=== PATIENT | female | born 1970 | race Caucasian/White ===

== ENCOUNTER 2017-03-31 13:37 | Emergency (ER) | payer BC ==
[~2017-03-31 13:37] MED LIST: ALPR0.5T6 PO; ASPI-630 PO; CRESTOR20 MG PO; DICL75TA PO; DIVA500T2 PO; DOCU100T11 PO; DOXY25TA16 PO; DULO30CA2 PO; DULO60CA6 PO; ETOD500T PO; GABA-586 PO; GLIP10TA13 PO; LEVO100T5 PO; LEVO75TA5 PO; MAGN400O7 PO; METF500T4 PO; METF500T9 PO; MULT1TAB52 PO; OMEP40CA5 PO; ONDA4TAB7 PO; OXYC10TA PO; PANT40TA3 PO; POLY17PO5 PO; POTA20TA12 PO; PREG150C PO; PROP10TA PO; QUET300T6 PO; QUET400T6 PO; SIMV10TA PO; SUCR1TAB PO; SUMA100T3 PO; SUMA100T4 PO; TAMS0.4C2 PO; TRAM50TA PO; TRAZ50TA15 PO; TRIA1CAP3 PO; TRIA1TAB3 PO; VILA40TA PO; ZOLP10TA4 PO; ZOLP5TAB PO
[2017-03-31 13:45] VITALS: BP 117/81
--- NOTE | 2017-03-31 14:55 | RAD ---
Indication fall 2 weeks ago. Persistent pain. AP oblique and lateral views of the left foot were obtained. No bony abnormality is seen
--- NOTE | 2017-03-31 15:10 | PHYS DOC ---
Past History Past Medical History: Arthritis, Bipolar, Depression, Diabetes, Fibromyalgia, High Cholesterol, Hypertension, Other Additional Past Medical Histor: PTSD Past Surgical History: Hysterectomy, Tubal ligation, Other Smoking: Non-smoker Alcohol Use: Sober Drug Use: None Adult General Chief Complaint Chief Complaint: FOOT INJURY PAIN HPI HPI Patient is a 46 year old female who presents with foot pain. The patient states she twisted her left foot while walking yesterday. She has pain with weightbearing. She saw a control panel operator 3 weeks ago and was diagnosed by MRI with a fracture of her lateral metatarsals. She was wearing a postop shoe at the time of the injury that brings her to the emergency department today. She did not take any additional medication for this injury. She states she can't take Tylenol or ibuprofen and ran out of tramadol. Review of Systems Review of Systems Constitutional: Denies fever or chills HENT: Denies nasal congestion or sore throat Respiratory: Denies cough or shortness of breath Cardiovascular: Denies chest pain GI: Denies abdominal pain Musculoskeletal: Reports foot pain Integument: Denies rash Neurologic: Denies headache Allergies Allergies Allergies Coded Allergies Type Severity Reaction Last Updated Verified Penicillins Allergy Intermediate 11/15/14 Yes aripiprazole Allergy Intermediate 11/15/14 Yes ciprofloxacin Allergy Intermediate 11/15/14 Yes Physical Exam Physical Exam Constitutional: Well developed, well nourished, no acute distress, non-toxic appearance. HENT: Normocephalic, atraumatic, bilateral external ears normal, oropharynx moist, nose normal. Eyes: conjunctiva normal, no discharge. Cardiovascular: no edema. Lungs & Thorax: no respiratory distress. Abdomen: nondistended. Skin: Warm, dry, no erythema, no rash. Extremities: Left foot no swelling or deformity, generalized tenderness over the dorsum of the foot overlying the first metatarsal. Otherwise no bony foot or ankle tenderness. Intact range of motion at the ankle, able to move toes. DP and PT 2+, capillary refill less than 2 seconds, sensation intact to toes. Neurologic: Alert and oriented X 3 Current Patient Data Vital Signs Vital Signs Date Time Temp Pulse Resp B/P (MAP) Pulse Ox O2 Delivery O2 Flow Rate FiO2 03/31/17 13:45 96.8 90 16 95 Room Air EKG EKG [] Radiology/Procedures Radiology/Procedures PROCEDURE: FOOT LEFT 3V Indication fall 2 weeks ago. Persistent pain. AP oblique and lateral views of the left foot were obtained. No bony abnormality is seen DICTATED AND SIGNED BY: ROGELIO JAIN MD DATE: 03/31/17 1449[] Course & Med Decision Making Course & Med Decision Making Pertinent Labs and Imaging studies reviewed. (See chart for details) The patient presents with foot pain. No evidence of fracture on x-ray here. Encouraged supportive care with rest, ice, compression, elevation. She requested pain medication. At this time no indication for need for ongoing prescription pain medication. Recommended that she follow up with her treating Dr. for additional concerns. Return to the emergency department for neurovascular compromise or otherwise worsening condition. Discharged home today in stable condition. [] Dragon Disclaimer Dragon Disclaimer This chart was dictated in whole or in part using Voice Recognition software in a busy, high-work load, and often noisy Emergency Department environment. It may contain unintended and wholly unrecognized errors or omissions. Departure Departure: Impression: Primary Impression: Foot pain Disposition: HOME, SELF-CARE Condition: STABLE Referrals: YVETTE MCELROY MD (PCP) Patient Instructions: Foot Contusion Additional Instructions: You were seen in the emergency department today for foot pain. The x-ray did not show broken bone. Please continue to wear the hard shoe provided by your doctor. Rest, ice, elevate, wear the Doroteo wrap bandage. Follow-up with your doctor on Monday if not improving. JONG DORADO MD Mar 31, 2017 15:10
== END 2017-03-31 15:30 | disposition home or self-care (01) ==
LOC: ER 13:37
DX: M79.672 Pain in left foot (principal); E11.9 Type 2 diabetes mellitus without complications; E78.00 Pure hypercholesterolemia, unspecified; I10 Essential (primary) hypertension; F43.10 Post-traumatic stress disorder, unspecified; M79.7 Fibromyalgia; M19.90 Unspecified osteoarthritis, unspecified site; F31.9 Bipolar disorder, unspecified; Z88.0 Allergy status to penicillin; Z88.1 Allergy status to other antibiotic agents; Z88.8 Allergy status to other drugs, medicaments and biological substances; X58.XXXA Exposure to other specified factors, initial encounter; Y93.01 Activity, walking, marching and hiking; Y99.8 Other external cause status; Y92.89 Other specified places as the place of occurrence of the external cause
CPT/HCPCS: 73630; 99284

== ENCOUNTER 2017-05-29 15:10 | Emergency (ER) | payer BC ==
[~2017-05-29] VITALS: Ht 167.6 cm; Wt 83.9 kg
[2017-05-29] MEDS ORDERED: LIDOCAINE WITH 8.4% SOD BICARB 3 ML DISP.SYRIN. IJ ONE (15:45)
[2017-05-29] MEDS ORDERED: DIPHTH,PERTUSS(ACELL),TET TOX 0.5 ML DISP.SYRIN. VAX IM ONE (16:00)
[2017-05-29 16:05] VITALS: BP 116/75
--- NOTE | 2017-05-29 16:12 | PHYS DOC ---
Past History Past Medical History: Arthritis, Bipolar, Depression, Diabetes, Fibromyalgia, High Cholesterol, Hypertension, Other Additional Past Medical Histor: PTSD Past Surgical History: Hysterectomy, Tubal ligation, Other Smoking: Non-smoker Alcohol Use: Sober Drug Use: None Adult General Chief Complaint Chief Complaint: LACERATION HPI HPI Patient is a 46-year-old female brought to the ED by her daughter with a laceration to her left hand. The patient is right-handed. The patient has a history of self inflicted injury. She stabbed her hand today with scissors. She denies suicidal ideation, she does this as a coping mechanism, not to try to injure herself. Patient has a history of self injury. She does see a therapist and is in group. She does take medications and has been taking them as prescribed. About 2 or 3 weeks ago the patient burned herself on the right ankle with a match. That is healing well. Review of Systems Review of Systems Integument: Healing right ankle burn as in history of present illness Neurologic: Denies headache, states she has short and long-term memory loss, unchanged Current Medications Current Medications Current Medications Medications (Trade) Dose Ordered Sig/David Start Time Stop Time Status Last Admin Dose Admin Bacitracin 1 pkt DAILY 05/30/17 09:00 UNV Diphtheria/ Tetanus/Acell Pertussis (Boostrix) 0.5 ml ONCE ONCE 05/29/17 16:00 05/29/17 16:01 DC 05/29/17 15:57 0.5 ML Lidocaine/Sodium Bicarbonate (Buffered Lidocaine 1%) 3 ml 1X ONCE 05/29/17 15:45 05/29/17 15:47 DC 05/29/17 15:45 3 ML Allergies Allergies Allergies Coded Allergies Type Severity Reaction Last Updated Verified Penicillins Allergy Intermediate 11/15/14 Yes aripiprazole Allergy Intermediate 11/15/14 Yes ciprofloxacin Allergy Intermediate 11/15/14 Yes Physical Exam Physical Exam Constitutional: Well developed, well nourished, no acute distress, non-toxic appearance. Alert, pleasant, mentating normally. Does not appear intoxicated. HENT: Normocephalic, atraumatic, bilateral external ears normal, nose normal. [] Eyes: conjunctiva normal, no discharge. [] Neck: Normal range of motion, no stridor. [] Skin: Warm, dry, no erythema, no rash. [] Extremities: Right ankle on the medial aspect has a healing area of second- degree burn that's approximately 2 x 2 centimeters, does not appear infected, is mostly healed. Left hand: There is a 1.5 cm laceration on the web space between the thumb and index finger. It appears consistent with a history. It is well into the subcutaneous tissue. Patient has good strength with approximation of the thumb and index finger. Neurologic: Alert and oriented X 3, normal motor function, normal sensory function, no focal deficits noted. [] Psychologic: Affect normal, judgement normal, mood normal. No agitation, does not appear depressed, cooperative. EKG EKG [] Radiology/Procedures Radiology/Procedures Procedure: Repair of left hand laceration 1.5 cm by me Neurovascular intact, no evidence on clinical exam of injury to deeper structures. The laceration was anesthetized with buffered lidocaine. It was irrigated with wound irrigation spray. The laceration was sutured with 3 simple interrupted sutures of 4-0 nylon. Good result. Bandaged by ED nursing staff. [] Course & Med Decision Making Course & Med Decision Making Pertinent Labs and Imaging studies reviewed. (See chart for details) 46-year-old female with a history of self injury but not suicidal ideation, comes with a self-inflicted laceration to the left hand. I talked to the patient at length while suturing her laceration. She regrets injuring her hand and is not suicidal, she does not believe she will be at risk for self injury if released. She states this usually happens when she is alone, and her daughter and will be with her. We discussed strategies to cope other than self injury. We discussed that she enjoys coloring and also taking walks, she will try doing one of those things. She does have group therapy tomorrow and she will discuss this. I ask her to call her therapist to report that this happened and make a plan. I'd like to have the sutures removed in about 12 days but the patient is leaving in one week to go out of town for one week to her daughter's wedding and she can wait until she returns to town to have them taken out. [] Dragon Disclaimer Dragon Disclaimer This chart was dictated in whole or in part using Voice Recognition software in a busy, high-work load, and often noisy Emergency Department environment. It may contain unintended and wholly unrecognized errors or omissions. Departure Departure: Impression: Primary Impression: Laceration of left hand Additional Impression: Self-inflicted injury Disposition: HOME, SELF-CARE Condition: IMPROVED Referrals: YVETTE MCELROY MD (PCP) Additional Instructions: Leave the bandage on and keep it dry for 48 hours. Then, you may remove the bandage and get it wet briefly to shower. Pat dry, make sure it is good and dry , and apply antibiotic ointment. Repeat bandage with Band-Aid or a gauze wrap like we did here. I would like the stitches to stay in for at least 12 days because of the location. Since you will be out of town, you may have stitches removed when you return on June 14. Make an appointment now with your doctor to have stitches removed as soon as possible after 12 days. As we discussed, discuss this with your therapist and make sure that they are aware of what happened. Problem Qualifiers MERI HOBBS MD May 29, 2017 16:12
[2017-05-29] MEDS ORDERED: BACITRACIN ZINC TOPICAL OINT PACKET. TP ONE (16:30)
== END 2017-05-29 16:20 | disposition home or self-care (01) ==
LOC: ER 15:10
DX: S61.411A Laceration without foreign body of right hand, initial encounter (principal); M79.7 Fibromyalgia; E11.9 Type 2 diabetes mellitus without complications; E78.00 Pure hypercholesterolemia, unspecified; I10 Essential (primary) hypertension; M19.90 Unspecified osteoarthritis, unspecified site; F31.9 Bipolar disorder, unspecified; Z88.0 Allergy status to penicillin; Z88.1 Allergy status to other antibiotic agents; Z88.8 Allergy status to other drugs, medicaments and biological substances; X78.8XXA Intentional self-harm by other sharp object, initial encounter; Y93.89 Activity, other specified; Y99.8 Other external cause status; Y92.89 Other specified places as the place of occurrence of the external cause
CPT/HCPCS: 12001; 90471; 90715; 99283-25

== ENCOUNTER 2017-12-13 13:07 | Emergency (ER) | payer BC ==
[~2017-12-13] VITALS: Ht 165.1 cm; Wt 94.0 kg
[2017-12-13 14:05] LABS: BASO # 0.1 x10^3/uL (0.0-0.2); BASO % 1 % (0-3); EOS # 0.2 x10^3/uL (0.0-0.7); EOS % 1 % (0-3); HEMATOCRIT 43.3 % (36.0-47.0); HEMOGLOBIN 14.4 g/dL (12.0-15.5); LYMPH # 2.8 x10^3/uL (1.0-4.8); LYMPH % 25 % (24-48); MEAN CORPUSCULAR HEMOGLOBIN 30 pg (25-35); MEAN CORPUSCULAR HGB CONC 33 g/dL (31-37); MEAN CORPUSCULAR VOLUME 90 fL (79-100); MONO # 0.7 x10^3/uL (0.0-1.1); MONO % 7 % (0-9); NEUT # 7.5 x10^3uL (1.8-7.7); NEUT % 67 % (31-73); PLATELET COUNT 258 x10^3/uL (140-400); RED BLOOD COUNT 4.84 x10^6/uL (3.50-5.40); RED CELL DISTRIBUTION WIDTH 14.3 % (11.5-14.5); WHITE BLOOD COUNT 11.3 x10^3/uL (4.0-11.0)
[2017-12-13 14:20] LABS: ALBUMIN 3.7 g/dL (3.4-5.0); ALBUMIN/GLOBULIN RATIO 1.1 (1.0-1.7); CALCIUM 9.2 mg/dL (8.5-10.1); CREATININE 0.9 mg/dL (0.6-1.0); GFR 66.5; POTASSIUM 3.1 mmol/L (3.5-5.1); TOTAL BILIRUBIN 0.3 mg/dL (0.2-1.0); TOTAL PROTEIN 7.2 g/dL (6.4-8.2)
--- NOTE | 2017-12-13 15:01 | PHYS DOC ---
Past History Past Medical History: Arthritis, Bipolar, Depression, Diabetes, Fibromyalgia, High Cholesterol, Hypertension, Hypothyroid, Other Additional Past Medical Histor: PTSD Past Surgical History: Hysterectomy, Tubal ligation, Other Smoking: Non-smoker Alcohol Use: Sober Additional Alcohol Information: X 1 YEAR Drug Use: None Adult General Chief Complaint Chief Complaint: ALTERED MENTAL STATUS HPI HPI Patient is a 47-year-old female brought from the [facility] by EMS with the complaint of altered mental status. EMS reported that the patient was called in as "unresponsive" but when they arrived, the patient stood up out of the chair and walked to the ambulance cart unassisted. She was nonverbal however. The [facility] told them that she is usually talkative. She came in today and was not acting right" became unresponsive" but she was sitting up in a chair the entire time. EMS reported that the patient's pupils are dilated. On arrival, patient did answer a couple of questions although not appropriately. For example, she was asked her date of and she stated "June"... Then was asked "what day?" And responded "fifth"... Then had to be prompted again to answer what year. On arrival, the patient very slowly told me "I just feel like it's all an illusion." Review of Systems Review of Systems Patient is altered, not answering questions appropriately, and not able to respond to review of systems accurately. Allergies Allergies Allergies Coded Allergies Type Severity Reaction Last Updated Verified Penicillins Allergy Intermediate 11/15/14 Yes aripiprazole Allergy Intermediate 11/15/14 Yes ciprofloxacin Allergy Intermediate 11/15/14 Yes Physical Exam Physical Exam Constitutional: Well developed, well nourished, no acute distress, non-toxic appearance. Eyes are open. Moving all extremities but not really following commands well. HENT: Normocephalic, atraumatic, bilateral external ears normal, oropharynx very dry, nose normal. [] Eyes: PERRLA, conjunctiva normal, no discharge. [] Neck: Normal range of motion, no stridor. [] Cardiovascular:Heart rate regular rhythm, no murmur [] Lungs & Thorax: Bilateral breath sounds clear to auscultation [] Abdomen: Bowel sounds normal, soft, no tenderness, no masses, no pulsatile masses. [] Skin: Warm, dry, no erythema, no rash. [] Extremities: No tenderness, no cyanosis, no clubbing, ROM intact, no edema. [] Neurologic: Alert, as described, normal motor function, no focal deficits noted. [] Current Patient Data Vital Signs Vital Signs Date Time Temp Pulse Resp B/P (MAP) Pulse Ox O2 Delivery O2 Flow Rate FiO2 12/13/17 14:18 94 18 111/77 (88) 94 Room Air 12/13/17 13:10 98.8 Lab Results Laboratory Tests Test 12/13/17 13:54 White Blood Count 11.3 x10^3/uL (4.0-11.0) H Red Blood Count 4.84 x10^6/uL (3.50-5.40) Hemoglobin 14.4 g/dL (12.0-15.5) Hematocrit 43.3 % (36.0-47.0) Mean Corpuscular Volume 90 fL (79-100) Mean Corpuscular Hemoglobin 30 pg (25-35) Mean Corpuscular Hemoglobin Concent 33 g/dL (31-37) Red Cell Distribution Width 14.3 % (11.5-14.5) Platelet Count 258 x10^3/uL (140-400) Neutrophils (%) (Auto) 67 % (31-73) Lymphocytes (%) (Auto) 25 % (24-48) Monocytes (%) (Auto) 7 % (0-9) Eosinophils (%) (Auto) 1 % (0-3) Basophils (%) (Auto) 1 % (0-3) Neutrophils # (Auto) 7.5 x10^3uL (1.8-7.7) Lymphocytes # (Auto) 2.8 x10^3/uL (1.0-4.8) Monocytes # (Auto) 0.7 x10^3/uL (0.0-1.1) Eosinophils # (Auto) 0.2 x10^3/uL (0.0-0.7) Basophils # (Auto) 0.1 x10^3/uL (0.0-0.2) Sodium Level 140 mmol/L (136-145) Potassium Level 3.1 mmol/L (3.5-5.1) L Chloride Level 101 mmol/L (98-107) Carbon Dioxide Level 27 mmol/L (21-32) Anion Gap 12 (6-14) Blood Urea Nitrogen 9 mg/dL (7-20) Creatinine 0.9 mg/dL (0.6-1.0) Estimated GFR (Cockcroft-Gault) 66.5 BUN/Creatinine Ratio 10 (6-20) Glucose Level 105 mg/dL (70-99) H Calcium Level 9.2 mg/dL (8.5-10.1) Total Bilirubin 0.3 mg/dL (0.2-1.0) Aspartate Amino Transferase (AST) 14 U/L (15-37) L Alanine Aminotransferase (ALT) 24 U/L (14-59) Alkaline Phosphatase 64 U/L (46-116) Total Protein 7.2 g/dL (6.4-8.2) Albumin 3.7 g/dL (3.4-5.0) Albumin/Globulin Ratio 1.1 (1.0-1.7) EKG EKG [] Radiology/Procedures Radiology/Procedures [] Course & Med Decision Making Course & Med Decision Making Pertinent Labs and Imaging studies reviewed. (See chart for details) EMS brought with the patient a medication list dated December 2016. A new medication was written in, Buprenorphine 7.5 mg patch 1 time a week dated . Other meds include Lyrica, bupropion, duloxetine, Seroquel, trazodone, in addition to several others. Patient later told me that she had previously been on hydrocodone for pain, then had been on tramadol, but it was not able to be combined with another one of her medications, so recently she was changed to the Butrans-patch. Patient rested comfortably in the ED. There is some difficulty getting her blood for labs but she tolerated that well. She became more talkative while phlebotomy was working on her lab draws. When I revisited her, the patient was very talkative. She asked me "do you think this could be from stress?". She states she feels like she is just overwhelmed. She also stated "I just feel like there is an illusion in front of me" stated that she is just not feeling right. She did drive to the [facility] today and I cautioned her that she should definitely not be driving when she's not feeling right. ED nursing staff was able to reach the patient's who will come in to pick her up. I believe the patient is stable for discharge as long as she is not driving and has someone watching her. The patient is comfortable with that plan. [] Dragon Disclaimer Dragon Disclaimer This electronic medical record was generated, in whole or in part, using a voice recognition dictation system. Departure Departure: Impression: Primary Impression: Altered mental status Additional Impression: Medication side effect Disposition: HOME, SELF-CARE Condition: IMPROVED Referrals: YVETTE MCELROY MD (PCP) Additional Instructions: As we discussed, I recommend that you do not drive, and stay with someone who can watch you, as long as you are having side effects of medication causing you to not feel right. Call your doctor or doctors you are prescribing medications for you and make an appointment to discuss the side effects you are experiencing. You may need to have some medications changed or doses changed. If medications are prescribed "as needed" you may withhold those medications for now to see if that helps. If medications are prescribed on a regular basis you should not stop them until talking to the prescribing doctor. Do not combine any other medications, any alcohol, or other substances with the medications that have been prescribed for you. Problem Qualifiers MERI HOBBS MD Dec 13, 2017 15:01
[2017-12-13 15:30] VITALS: BP 106/76
== END 2017-12-13 15:30 | disposition home or self-care (01) ==
LOC: ER 13:07
DX: R41.82 Altered mental status, unspecified (principal); T50.905A Adverse effect of unspecified drugs, medicaments and biological substances, initial encounter; M79.7 Fibromyalgia; E78.00 Pure hypercholesterolemia, unspecified; E03.9 Hypothyroidism, unspecified; E11.9 Type 2 diabetes mellitus without complications; F43.10 Post-traumatic stress disorder, unspecified; M19.90 Unspecified osteoarthritis, unspecified site; F31.9 Bipolar disorder, unspecified; I10 Essential (primary) hypertension; Z87.891 Personal history of nicotine dependence; Z88.0 Allergy status to penicillin; Z88.1 Allergy status to other antibiotic agents; Z88.8 Allergy status to other drugs, medicaments and biological substances; Y92.89 Other specified places as the place of occurrence of the external cause
CPT/HCPCS: 36415; 80053; 85025; 99284

== ENCOUNTER 2018-08-16 09:51 | Inpatient (IN) | payer BC, MEDICARE ==
[~2018-08-16] VITALS: Ht 167.6 cm; Wt 90.7 kg
[~2018-08-16 09:51] MED LIST changes: +METF500T16 PO; -METF500T4 PO; +TRAZ-85 PO; -TRAZ50TA15 PO
[2018-08-16] MEDS ORDERED: IV NORMAL SALINE 1,000ML 1,000 ML IV ONE (10:30)
--- NOTE | 2018-08-16 10:31 | PHYS DOC ---
Past History Past Medical History: Arthritis, Bipolar, Depression, Diabetes, Fibromyalgia, High Cholesterol, Hypertension, Hypothyroid, Other Additional Past Medical Histor: PTSD Past Surgical History: Hysterectomy, Tubal ligation, Other Smoking: Non-smoker Alcohol Use: None Drug Use: None Adult General Chief Complaint Chief Complaint: ALTERED MENTAL STATUS HPI HPI 48-year-old female presents with altered mental status. The patient is on several medications. Her went out of town for a few days. Prior to this , the patient was feeling and acting normal. When he got back he discovered that she missed at least one full day of her medications. He has made sure she has gotten her medications the last 4 days. Today he left the house and came back and during that time she usually takes her medicines. She did not take any of her medicines to he reminded her to. He also states that her speech seems a little slurred and she answers questions more slowly. She has had intermittent difficulty with memory in the past, but he feels like it is more consistent the last few days. The patient also was off balance and fell yesterday. It is unknown whether or not she hit her head. She denies losing consciousness. Patient has balance issues at baseline. She has had a similar episode to this in the past and she had hypercalcemia and hypokalemia. She has not had fever or chills at home. Review of Systems Review of Systems Constitutional: Denies fever or chills [] Eyes: Denies change in visual acuity, redness, or eye pain [] HENT: Denies nasal congestion or sore throat [] Respiratory: Denies cough or shortness of breath [] Cardiovascular: No additional information not addressed in HPI [] GI: Denies abdominal pain, nausea, vomiting, bloody stools or diarrhea [] : Increased urinary frequency[] Musculoskeletal: Denies back pain or joint pain [] Integument: Denies rash or skin lesions [] Neurologic: More frequent dizziness than baseline[] Endocrine: Denies polyuria or polydipsia [] All other systems were reviewed and found to be within normal limits, except as documented in this note. Current Medications Current Medications Current Medications Medications (Trade) Dose Ordered Sig/David Start Time Stop Time Status Last Admin Dose Admin Sodium Chloride 1,000 ml @ 1,000 mls/hr 1X ONCE 08/16/18 10:30 08/16/18 11:29 UNV Allergies Allergies Allergies Coded Allergies Type Severity Reaction Last Updated Verified Penicillins Allergy Intermediate 11/15/14 Yes aripiprazole Allergy Intermediate 11/15/14 Yes ciprofloxacin Allergy Intermediate 11/15/14 Yes Physical Exam Physical Exam Constitutional: Well developed, well nourished, no acute distress, non-toxic appearance. [] HENT: Normocephalic, atraumatic, bilateral external ears normal, oropharynx very dry, no oral exudates, nose normal. [] Eyes: PERRLA, EOMI, conjunctiva normal, no discharge. [] Neck: Normal range of motion, no tenderness, supple, no stridor. [] Cardiovascular:Heart rate regular rhythm, no murmur [] Lungs & Thorax: Bilateral breath sounds clear to auscultation [] Abdomen: Bowel sounds normal, soft, no tenderness, no masses, no pulsatile masses. [] Skin: Warm, dry, no erythema, no rash. [] Back: No tenderness, no CVA tenderness. [] Extremities: No tenderness, no cyanosis, no clubbing, ROM intact, no edema. [] Neurologic: Alert and oriented X 3, normal motor function, normal sensory function, no focal deficits noted. Slow to answer some questions, but appropriate answers.[] Psychologic: Affect normal, judgement normal, mood normal. [] Current Patient Data Vital Signs Vital Signs Date Time Temp Pulse Resp B/P (MAP) Pulse Ox O2 Delivery O2 Flow Rate FiO2 08/16/18 10:13 98.0 100 18 98 Room Air EKG EKG [] Radiology/Procedures Radiology/Procedures [] Impressions: CT HEAD WO CONTRAST dated 08/16/2018 10:28 AM Indication: Altered mental status.AMS. Comparison: No comparison is available. Technique: Contiguous axial imaging the head was performed from skull base to vertex. One or more of the following individualized dose reduction techniques were utilized for this examination: 1. Automated exposure control 2. Adjustment of the mA and/or kV according to patient size 3. Use of iterative reconstruction technique Findings: Ventricles and sulci are mildly prominent for age. No midline shift or mass effect. Brain parenchyma is of normal attenuation. No hemorrhage or extra axial collection. Posterior fossa and brainstem unremarkable. Visualized paranasal sinuses and mastoid air cells are clear. No apparent calvarial abnormality. IMPRESSION: No evidence of acute intracranial abnormality. Electronically signed by: Garcia Cowart MD (08/16/2018 10:52 AM) [facility] DICTATED AND SIGNED BY: GARCIA COWART MD DATE: 08/16/18 1051 CC: ELISABETH MENJIVAR DO; YVETTE MCELROY MD CHEST AP ONLY dated 08/16/2018 9:50 AM. Comparison: None. Clinical Indication: Altered mental status. Findings: Single upright portable exam performed. Heart and mediastinal contours are within normal limits. Lungs are clear without focal consolidation. Vascular interstitium within normal limits. No pleural effusion or pneumothorax. Impression: Negative portable chest. Electronically signed by: Garcia Cowart MD (08/16/2018 10:50 AM) [facility] DICTATED AND SIGNED BY: GARCIA COWART MD DATE: 08/16/18 1049 CC: ELISABETH MENJIVAR DO; YVETTE MCELROY MD~ Course & Med Decision Making Course & Med Decision Making Pertinent Labs and Imaging studies reviewed. (See chart for details) The patient has a potassium of 2.7. We will replace this orally and IV. Her creatinine is 1.8. Her previous from December of this year was normal. I ordered a liter of normal saline as well as an additional liter with potassium. The patient has urinary tract infection. Blood cultures have been ordered. We'll treat this with IV Rocephin. The patient will be admitted to the hospital. Her head CT is negative for acute findings. Chest x-rays negative. I discussed the case with the hospitalist, Dr. Antunez and he has accepted the patient for admission. [] Dragon Disclaimer Dragon Disclaimer This electronic medical record was generated, in whole or in part, using a voice recognition dictation system. Departure Departure: Referrals: YVETTE MCELROY MD (PCP) ELISABETH MENJIVAR DO Aug 16, 2018 10:31
[2018-08-16 10:33] LABS: BASO # 0.2 x10^3/uL (0.0-0.2); BASO % 1 % (0-3); EOS # 0.2 x10^3/uL (0.0-0.7); EOS % 1 % (0-3); HEMATOCRIT 34.9 % (36.0-47.0); HEMOGLOBIN 11.8 g/dL (12.0-15.5); LYMPH # 1.7 x10^3/uL (1.0-4.8); LYMPH % 8 % (24-48); MEAN CORPUSCULAR HEMOGLOBIN 28 pg (25-35); MEAN CORPUSCULAR HGB CONC 34 g/dL (31-37); MEAN CORPUSCULAR VOLUME 84 fL (79-100); MONO # 1.3 x10^3/uL (0.0-1.1); MONO % 6 % (0-9); NEUT # 18.8 x10^3uL (1.8-7.7); NEUT % 85 % (31-73); PLATELET COUNT 378 x10^3/uL (140-400); RED BLOOD COUNT 4.17 x10^6/uL (3.50-5.40); RED CELL DISTRIBUTION WIDTH 15.7 % (11.5-14.5); WHITE BLOOD COUNT 22.1 x10^3/uL (4.0-11.0)
[2018-08-16 10:37] LABS: BILIRUBIN,URINE NEG (NEG); CLARITY,URINE TURBID; COLOR,URINE AMBER; GLUCOSE,URINE NEG (NEG); NITRITE,URINE NEG (NEG); UROBILINOGEN,URINE 2 mg/dL (0.2 mg/dL)
[2018-08-16 10:39] LABS: BACTERIA,URINE MANY /HPF (0-FEW); GRANULAR CASTS,URINE MOD /HPF; SQUAMOUS EPITHELIAL CELL,UR MANY /LPF; WBC,URINE >40 /HPF (0-4)
[2018-08-16 10:48] LABS: ALBUMIN 2.1 g/dL (3.4-5.0); ALBUMIN/GLOBULIN RATIO 0.4 (1.0-1.7); CALCIUM 8.8 mg/dL (8.5-10.1); CREATININE 1.8 mg/dL (0.6-1.0); GFR 29.8; TOTAL BILIRUBIN 1.2 mg/dL (0.2-1.0); TOTAL PROTEIN 7.2 g/dL (6.4-8.2)
[2018-08-16 10:50] LABS: POTASSIUM 2.7 mmol/L (3.5-5.1)
--- NOTE | 2018-08-16 10:53 | RAD ---
CHEST AP ONLY dated 08/16/2018 9:50 AM. Comparison: None. Clinical Indication: Altered mental status. Findings: Single upright portable exam performed. Heart and mediastinal contours are within normal limits. Lungs are clear without focal consolidation. Vascular interstitium within normal limits. No pleural effusion or pneumothorax. Impression: Negative portable chest. Electronically signed by: Garcia Cowart MD (08/16/2018 10:50 AM) [facility]
--- NOTE | 2018-08-16 10:55 | RAD ---
CT HEAD WO CONTRAST dated 08/16/2018 10:28 AM Indication: Altered mental status.AMS. Comparison: No comparison is available. Technique: Contiguous axial imaging the head was performed from skull base to vertex. One or more of the following individualized dose reduction techniques were utilized for this examination: 1. Automated exposure control 2. Adjustment of the mA and/or kV according to patient size 3. Use of iterative reconstruction technique Findings: Ventricles and sulci are mildly prominent for age. No midline shift or mass effect. Brain parenchyma is of normal attenuation. No hemorrhage or extra axial collection. Posterior fossa and brainstem unremarkable. Visualized paranasal sinuses and mastoid air cells are clear. No apparent calvarial abnormality. IMPRESSION: No evidence of acute intracranial abnormality. Electronically signed by: Garcia Cowart MD (08/16/2018 10:52 AM) [id number]
[2018-08-16] MEDS ORDERED: POTASSIUM CL 40MEQ IN 0.9%NACL 1,000 ML IV ONE (11:00)
[2018-08-16] MEDS ORDERED: POTASSIUM CHLORIDE 20 MEQ TABLET.ER. PO ONE (11:00)
[2018-08-16] MEDS ORDERED: cefTRIAXone SODIUM 1 GM VIAL IV ONE (11:21)
[2018-08-16] MEDS ORDERED: IV NORMAL SALINE 50ML 50 ML ONE (11:21)
[2018-08-16 11:25] LABS: % BANDS 9 % (0-9); % BASOS 0 % (0-3); % EOS 0 % (0-5); % LYMPHS 12 % (24-48); % METAS 2 % (0-0); % MONOS 4 % (0-10); % SEGS 73 % (35-66); HYPOCHROMIA PRESENT; PLATELET CLUMP PRESENT; PLT ESTIMATE ADEQUATE (ADEQUATE); STOMATOCYTES OCC
[2018-08-16 11:26] LABS: TOXIC GRANULATION MARKED; TOXIC VACUOLATION SLIGHT
[2018-08-16 13:16] VITALS: BP 114/76
--- NOTE | 2018-08-16 13:31 | EKG ---
[address] [address] Test Date: 2018-08-16 Test Time: 11:23:57 Pat Name: ASHELY SESAY Department: Room: 107 A Gender: F Laundry Laborer: : 1970 Requested By: ELISABETH MENJIVAR Order Number: [id number] Reading MD: Aman Carpio MD Measurements Intervals [place] Rate: 87 P: -10 [place]: 160 QRS: -28 QRSD: 96 T: 13 QT: 404 QTc: 487 Interpretive Statements SINUS RHYTHM LEFTWARD AXIS PROLONGED QT NO SPECIFIC ECG ABNORMALITIES Electronically Signed On 08-20-2018 11:12:45 DENTAL SALES REPRESENTATIVE by Aman Carpio MD
[2018-08-16] MEDS ORDERED: ATOR40TA PO (14:19)
[2018-08-16] MEDS ORDERED: ICOS1CAP PO (14:19)
[2018-08-16] MEDS ORDERED: LAMO150T2 PO (14:19)
[2018-08-16] MEDS ORDERED: SUMA100T3 PO (14:19)
[2018-08-16] MEDS ORDERED: DULO60CA44 PO (14:19)
[2018-08-16] MEDS ORDERED: QUET200T6 PO (14:19)
[2018-08-16] MEDS ORDERED: GABA-586 PO (14:19)
[2018-08-16] MEDS ORDERED: MECL25TA3 PO (14:19)
[2018-08-16] MEDS ORDERED: LEVO100T5 PO (14:19)
[2018-08-16] MEDS ORDERED: CELE100C PO (14:19)
[2018-08-16] MEDS ORDERED: PANT40TA5 PO (14:19)
[2018-08-16 14:44] VITALS: BP 100/66
[2018-08-16] MEDS ORDERED: ONDANSETRON ODT 4 MG TAB.RAPDIS PO PRN (15:30)
[2018-08-16] MEDS ORDERED: SUMAtriptan SUCCINATE 50 MG TABLET PO PRN (15:30)
[2018-08-16 16:03] LABS: ALBUMIN 1.7 g/dL (3.4-5.0); ALBUMIN/GLOBULIN RATIO 0.4 (1.0-1.7); CALCIUM 7.6 mg/dL (8.5-10.1); CREATININE 1.5 mg/dL (0.6-1.0); GFR 36.8; POTASSIUM 3.7 mmol/L (3.5-5.1); TOTAL BILIRUBIN 0.8 mg/dL (0.2-1.0)
[2018-08-16] MEDS: QUEtiapine 100 MG TABLET. PO SCH (16:11)
[2018-08-16] MEDS: NON FORMULARY ITEM (Icosapent Ethyl (Vascepa) 1 GM) PO SCH (16:11)
[2018-08-16] MEDS: ACETAMINOPHEN 500 MG TABLET PO PRN (16:37)
[2018-08-16] MEDS ORDERED: lamoTRIgine 150 MG TABLET. PO SCH (17:00)
[2018-08-16] MEDS ORDERED: QUETIAPINE FUMARATE PO SCH (17:00)
[2018-08-16 18:20] VITALS: BP 96/63
[2018-08-16] MEDS: IV NORMAL SALINE 1,000ML 1,000 ML IV SCH (18:54)
[2018-08-16] MEDS: GENTAMICIN PER PHARMACY MC PRN (19:40)
[2018-08-16] MEDS: NORMAL SALINE IV SCH (21:41)
[2018-08-16] MEDS: GENTAMICIN SULFATE IV SCH (21:41)
[2018-08-16] MEDS: traZODone 100 MG TABLET. PO PRN (21:42)
[2018-08-16] MEDS: LACTOBACILLUS RHAMNOSUS GG 1 CAPSULE. PO SCH (21:42)
[2018-08-16] MEDS: GABAPENTIN 300 MG CAPSULE. PO SCH (21:42)
[2018-08-16] MEDS: ATORVASTATIN CALCIUM 20 MG TABLET PO SCH (21:42)
[2018-08-16] MEDS: MECLIZINE 12.5 MG TABLET. PO SCH (21:43)
[2018-08-16] MEDS: DULoxetine HCL 60 MG CAPSULE.DR PO SCH (21:43)
[2018-08-16] MEDS: APIXABAN 2.5 MG TABLET PO SCH (21:43)
[2018-08-16] MEDS: CELECOXIB 100 MG CAPSULE PO SCH (21:44)
[2018-08-16] MEDS: lamoTRIgine 150 MG TABLET. PO SCH (21:44)
[2018-08-16 22:25] VITALS: BP 102/69
[2018-08-17] MEDS: LEVOTHYROXINE 100 MCG TABLET PO SCH (05:46)
[2018-08-17] MEDS: IV NORMAL SALINE 1,000ML 1,000 ML IV SCH ×2 (05:46→15:08)
[2018-08-17 06:02] VITALS: BP 110/72
[2018-08-17] MEDS: NON FORMULARY ITEM (Icosapent Ethyl (Vascepa) 1 GM) PO SCH ×2 (07:00→18:00)
[2018-08-17 07:58] LABS: BASO # 0.2 x10^3/uL (0.0-0.2); BASO % 1 % (0-3); EOS # 0.2 x10^3/uL (0.0-0.7); EOS % 1 % (0-3); HEMATOCRIT 35.9 % (36.0-47.0); LYMPH # 2.3 x10^3/uL (1.0-4.8); LYMPH % 10 % (24-48); MEAN CORPUSCULAR HEMOGLOBIN 29 pg (25-35); MEAN CORPUSCULAR HGB CONC 34 g/dL (31-37); MEAN CORPUSCULAR VOLUME 85 fL (79-100); MONO # 1.1 x10^3/uL (0.0-1.1); MONO % 5 % (0-9); NEUT % 83 % (31-73); PLATELET COUNT 386 x10^3/uL (140-400); RED BLOOD COUNT 4.21 x10^6/uL (3.50-5.40); RED CELL DISTRIBUTION WIDTH 16.2 % (11.5-14.5); WHITE BLOOD COUNT 21.8 x10^3/uL (4.0-11.0)
[2018-08-17] MEDS ORDERED: GENTAMICIN RANDOM LEVEL. MC ONE (08:00)
[2018-08-17 08:20] LABS: ALBUMIN 1.9 g/dL (3.4-5.0); ALBUMIN/GLOBULIN RATIO 0.4 (1.0-1.7); CALCIUM 8.2 mg/dL (8.5-10.1); CREATININE 1.3 mg/dL (0.6-1.0); GFR 43.4; POTASSIUM 3.5 mmol/L (3.5-5.1); TOTAL PROTEIN 6.6 g/dL (6.4-8.2)
[2018-08-17] MEDS: LACTOBACILLUS RHAMNOSUS GG 1 CAPSULE. PO SCH ×2 (09:05→21:05)
[2018-08-17] MEDS: TRIAMTERENE/HCTZ 37.5/25MG TABLET. PO SCH (09:06)
[2018-08-17] MEDS: APIXABAN 2.5 MG TABLET PO SCH ×2 (09:06→21:04)
[2018-08-17] MEDS: MECLIZINE 12.5 MG TABLET. PO SCH ×3 (09:06→21:05)
[2018-08-17] MEDS: GABAPENTIN 300 MG CAPSULE. PO SCH ×3 (09:06→21:05)
[2018-08-17] MEDS: CELECOXIB 100 MG CAPSULE PO SCH ×2 (09:06→21:05)
[2018-08-17] MEDS: PANTOPRAZOLE 40 MG TABLET. PO SCH (09:06)
[2018-08-17] MEDS: DULoxetine HCL 60 MG CAPSULE.DR PO SCH ×2 (09:06→21:05)
[2018-08-17] MEDS: ASPIRIN 81 MG TAB.CHEW PO SCH (11:28)
[2018-08-17 11:36] VITALS: BP 124/75
[2018-08-17] MEDS: GENTAMICIN PER PHARMACY MC PRN (13:33)
[2018-08-17 15:58] VITALS: BP 117/75
[2018-08-17] MEDS: QUEtiapine 100 MG TABLET. PO SCH (16:19)
[2018-08-17] MEDS: lamoTRIgine 150 MG TABLET. PO SCH (16:19)
[2018-08-17 19:25] VITALS: BP 128/67
[2018-08-17] MEDS: ATORVASTATIN CALCIUM 20 MG TABLET PO SCH (21:04)
[2018-08-17] MEDS: traZODone 100 MG TABLET. PO PRN (21:06)
[2018-08-18] MEDS: IV NORMAL SALINE 1,000ML 1,000 ML IV SCH ×3 (00:06→20:15)
[2018-08-18] MEDS: LEVOTHYROXINE 100 MCG TABLET PO SCH (05:00)
[2018-08-18] MEDS: NON FORMULARY ITEM (Icosapent Ethyl (Vascepa) 1 GM) PO SCH ×2 (05:07→18:00)
[2018-08-18 05:08] VITALS: BP 128/85
[2018-08-18] MEDS: LACTOBACILLUS RHAMNOSUS GG 1 CAPSULE. PO SCH ×2 (09:13→20:32)
[2018-08-18] MEDS: TRIAMTERENE/HCTZ 37.5/25MG TABLET. PO SCH (09:13)
[2018-08-18] MEDS: DULoxetine HCL 60 MG CAPSULE.DR PO SCH ×2 (09:13→20:32)
[2018-08-18] MEDS: APIXABAN 2.5 MG TABLET PO SCH ×2 (09:13→20:32)
[2018-08-18] MEDS: MECLIZINE 12.5 MG TABLET. PO SCH ×3 (09:13→20:32)
[2018-08-18] MEDS: GABAPENTIN 300 MG CAPSULE. PO SCH ×3 (09:14→20:32)
[2018-08-18] MEDS: PANTOPRAZOLE 40 MG TABLET. PO SCH (09:14)
[2018-08-18] MEDS: NORMAL SALINE IV SCH (09:16)
[2018-08-18] MEDS: GENTAMICIN SULFATE IV SCH (09:16)
[2018-08-18] MEDS: CELECOXIB 100 MG CAPSULE PO SCH ×2 (09:16→20:32)
[2018-08-18 10:49] LABS: BASO # 0.1 x10^3/uL (0.0-0.2); BASO % 0 % (0-3); EOS # 0.2 x10^3/uL (0.0-0.7); EOS % 1 % (0-3); HEMATOCRIT 34.8 % (36.0-47.0); HEMOGLOBIN 11.7 g/dL (12.0-15.5); LYMPH # 2.4 x10^3/uL (1.0-4.8); LYMPH % 11 % (24-48); MEAN CORPUSCULAR HEMOGLOBIN 29 pg (25-35); MEAN CORPUSCULAR HGB CONC 34 g/dL (31-37); MEAN CORPUSCULAR VOLUME 85 fL (79-100); MONO # 0.7 x10^3/uL (0.0-1.1); MONO % 3 % (0-9); NEUT # 18.8 x10^3uL (1.8-7.7); NEUT % 85 % (31-73); PLATELET COUNT 458 x10^3/uL (140-400); RED BLOOD COUNT 4.12 x10^6/uL (3.50-5.40); RED CELL DISTRIBUTION WIDTH 16.3 % (11.5-14.5); WHITE BLOOD COUNT 22.2 x10^3/uL (4.0-11.0)
[2018-08-18 11:48] LABS: % BANDS 6 % (0-9); % EOS 4 % (0-5); % LYMPHS 11 % (24-48); % MONOS 6 % (0-10); % SEGS 69 % (35-66); PLT ESTIMATE INCREASED (ADEQUATE); TOXIC GRANULATION PRESENT
[2018-08-18 12:00] VITALS: BP 125/80
[2018-08-18] MEDS: ASPIRIN 81 MG TAB.CHEW PO SCH (13:22)
[2018-08-18 15:00] VITALS: BP 120/76
[2018-08-18] MEDS: ACETAMINOPHEN 500 MG TABLET PO PRN ×2 (15:55→20:32)
[2018-08-18] MEDS: QUEtiapine 100 MG TABLET. PO SCH (18:58)
[2018-08-18] MEDS: lamoTRIgine 150 MG TABLET. PO SCH (18:58)
[2018-08-18 19:44] VITALS: BP 123/82
--- NOTE | 2018-08-18 20:21 | PN ---
DATE: 08/16/2018 SUBJECTIVE: The patient is a 48-year-old female in with sepsis, pyelonephritis. The patient's white count is still remaining elevated high, even though the patient herself says she is feeling much, much better. She is on combination of Rocephin and gentamicin. She has greater than 100,000 gram negatives that she should be taking care, but otherwise, the patient's vital signs look basically stable. OBJECTIVE: VITAL SIGNS: Blood pressure 120/70, respiratory rate 20, pulse 70, afebrile. GENERAL: The patient is alert and oriented. LUNGS: Clear. CARDIOVASCULAR: Stable. ABDOMEN: Soft. The patient is really not having any pain. LABORATORY DATA: White count still is elevated, still point of concern to continue on IV antibiotic therapy along with the Rocephin and the chance that is being followed by the Pharmacy Department. IMPRESSION: Sepsis, pyelonephritis, gram-negative organism. PLAN: As above. Continue with IV antibiotic therapy for now. Continue to monitor carefully BUN, creatinine, and white count. YVETTE MCELROY MD DR: PETER/fatou JOB#: [id number] / [id number]
[2018-08-18] MEDS: ATORVASTATIN CALCIUM 20 MG TABLET PO SCH (20:31)
[2018-08-18] MEDS: traZODone 100 MG TABLET. PO PRN (20:32)
[2018-08-18 23:08] VITALS: BP 112/73
[2018-08-19 03:51] VITALS: BP 136/87
[2018-08-19] MEDS: LEVOTHYROXINE 100 MCG TABLET PO SCH (06:08)
[2018-08-19 06:13] VITALS: BP 149/90
[2018-08-19] MEDS: NON FORMULARY ITEM (Icosapent Ethyl (Vascepa) 1 GM) PO SCH ×2 (07:00→18:00)
[2018-08-19 07:06] LABS: BASO # 0.2 x10^3/uL (0.0-0.2); BASO % 1 % (0-3); EOS # 0.2 x10^3/uL (0.0-0.7); EOS % 1 % (0-3); HEMOGLOBIN 11.1 g/dL (12.0-15.5); LYMPH # 1.7 x10^3/uL (1.0-4.8); LYMPH % 9 % (24-48); MEAN CORPUSCULAR HEMOGLOBIN 28 pg (25-35); MEAN CORPUSCULAR HGB CONC 34 g/dL (31-37); MEAN CORPUSCULAR VOLUME 84 fL (79-100); MONO # 0.8 x10^3/uL (0.0-1.1); MONO % 4 % (0-9); NEUT # 15.8 x10^3uL (1.8-7.7); NEUT % 85 % (31-73); PLATELET COUNT 488 x10^3/uL (140-400); RED BLOOD COUNT 3.93 x10^6/uL (3.50-5.40); RED CELL DISTRIBUTION WIDTH 16.4 % (11.5-14.5); WHITE BLOOD COUNT 18.7 x10^3/uL (4.0-11.0)
[2018-08-19 07:16] LABS: CALCIUM 8.2 mg/dL (8.5-10.1); GFR 58.7
[2018-08-19] MEDS: GABAPENTIN 300 MG CAPSULE. PO SCH ×3 (09:13→20:33)
[2018-08-19] MEDS: CELECOXIB 100 MG CAPSULE PO SCH (09:13)
[2018-08-19] MEDS: DULoxetine HCL 60 MG CAPSULE.DR PO SCH ×2 (09:14→20:33)
[2018-08-19] MEDS: TRIAMTERENE/HCTZ 37.5/25MG TABLET. PO SCH (09:14)
[2018-08-19] MEDS: LACTOBACILLUS RHAMNOSUS GG 1 CAPSULE. PO SCH ×2 (09:14→20:33)
[2018-08-19] MEDS: APIXABAN 2.5 MG TABLET PO SCH ×2 (09:14→20:33)
[2018-08-19] MEDS: PANTOPRAZOLE 40 MG TABLET. PO SCH (09:43)
[2018-08-19] MEDS: ACETAMINOPHEN 500 MG TABLET PO PRN ×2 (09:43→20:33)
[2018-08-19] MEDS: POTASSIUM CHLORIDE 20 MEQ/15 ML ORAL LIQUID. FT SCH ×2 (09:43→15:13)
[2018-08-19 11:17] VITALS: BP 129/88
[2018-08-19] MEDS: IV NORMAL SALINE 1,000ML 1,000 ML IV SCH ×2 (11:53→16:15)
[2018-08-19] MEDS: MECLIZINE 12.5 MG TABLET. PO SCH ×3 (11:56→20:33)
--- NOTE | 2018-08-19 14:05 | RAD ---
CT abdomen and pelvis without contrast: Reason for examination: Abdominal and pelvic pain. Evaluate for renal problems. Comparison is made to previous study dated 11/14/2014. Helical images were obtained through the abdomen pelvis with no intravenous or oral contrast administered. Reconstruction was performed in sagittal and coronal planes. Exposure: One or more of the following individualized dose reduction techniques were utilized for this examination: 1. Automated exposure control 2. Adjustment of the mA and/or kV according to patient size 3. Use of iterative reconstruction technique. The lung bases show small amount of pleural fluid or pleural reaction bilaterally. The heart size is normal with no significant pericardial effusion. No abnormality seen at the liver, spleen, pancreas or adrenal glands. There is cholelithiasis. The abdominal aorta and inferior vena cava show no acute abnormalities. The stomach contains gastric content but is not abnormally distended. The small intestinal tract is nondilated and shows no apparent obstruction. There are a few scattered diverticuli in the sigmoid colon but no evidence of diverticulitis. The appendix appears be surgically absent. The kidneys show no renal masses, renal calculi, hydronephrosis or evidence of obstructive uropathy. There is however some perinephric stranding which could reflect some inflammatory change. No abnormality seen at the bladder or vaginal cuff. No adnexal masses are seen. There is no free fluid or free air seen in the abdomen or pelvis. IMPRESSION: Cholelithiasis. Mild stranding around the kidneys which may reflect some inflammatory changes but no renal calculi or evidence of obstructive uropathy or renal mass. Electronically signed by: Clara Pappas MD (08/19/2018 2:02 PM) [facility]
[2018-08-19] MEDS: ASPIRIN 81 MG TAB.CHEW PO SCH (15:13)
[2018-08-19] MEDS: metroNIDAZOLE 500 MG TABLET PO SCH ×2 (15:14→22:27)
--- NOTE | 2018-08-19 15:36 | RAD ---
VQ Scan: Clinical History: Elevated d-dimer. Technique: 11 mCi of xenon-133 was administered as an aerosol and spot views were obtained on a gamma camera for a Nuclear Medicine ventilation examination. 5.4 mCi of Tc 99m MAA was administered intravenously and spot views were obtained on the gamma camera for a Nuclear Medicine perfusion examination. Findings: There is mild retention of radiotracer on the ventilation images in the bilateral lungs could be due to airway disease. Perfusion images are homogeneous without perfusion defects. Impression: Very low probability for pulmonary embolism. Electronically signed by: Timothy Lepe MD (08/19/2018 3:32 PM) [facility]
--- NOTE | 2018-08-19 15:48 | RAD ---
Chest, PA and Lateral: Technique: PA and lateral views of the chest were obtained. History: Cough, shortness of breath. Comparison: 08/16/2018. Findings: The heart and pulmonary vasculature appear within normal limits. The lungs are clear. The pleural margins are clear. Impression: No acute chest process is seen. Electronically signed by: Timothy Lepe MD (08/19/2018 3:45 PM) [facility]
[2018-08-19 16:30] VITALS: BP 132/86
[2018-08-19] MEDS: QUEtiapine 100 MG TABLET. PO SCH (17:55)
[2018-08-19] MEDS: lamoTRIgine 150 MG TABLET. PO SCH (17:55)
--- NOTE | 2018-08-19 19:00 | PN ---
DATE: SUBJECTIVE: The patient having severe abdominal pain, still some diarrhea. C. diff still pending. We will go ahead and continue to monitor the patient accordingly on those various issues. The patient had a V/Q scan negative. CT of the abdomen and pelvis did show some cholelithiasis, nothing in that left lower quadrant area. OBJECTIVE: VITAL SIGNS: Blood pressure 132/86, respiration 18, pulse 78 and afebrile. GENERAL: The patient is alert and oriented. LUNGS: Diminished, but clear. ABDOMEN: Soft, diffuse tenderness in the abdominal area. Some slight guarding, but no rebounding, positive bowel sounds. No hepatosplenomegaly noted. EXTREMITIES: No clubbing, cyanosis, or edema. We will go ahead and continue to monitor the patient, get a stool for C. diff and make further evaluation on her as indicated. Otherwise, blood pressure 132/86, respiratory rate 18, pulse 80, afebrile. The patient's CT did show possible stranding along the kidneys consistent with her pyelonephritis. White count finally down to 18,000. Electrolytes down. She is on electrolyte replacement. Final urine cultures are showing E. coli and she is on appropriate IV antibiotic therapy of Rocephin and gentamicin. IMPRESSION: Therefore, pyelonephritis, abdominal pain, cholelithiasis, hypokalemia. Continue with IV antibiotic therapy. YVETTE MCELROY MD DR: PETER/fatou JOB#: [id number] / [id number]
[2018-08-19 19:14] VITALS: BP 138/87
[2018-08-19] MEDS: ATORVASTATIN CALCIUM 20 MG TABLET PO SCH (20:33)
[2018-08-19] MEDS: GENTAMICIN SULFATE IV SCH (20:34)
[2018-08-19] MEDS: NORMAL SALINE IV SCH (20:34)
[2018-08-19 22:32] VITALS: BP 98/66
[2018-08-20] MEDS: ACETAMINOPHEN 500 MG TABLET PO PRN ×2 (02:53→15:52)
[2018-08-20] MEDS: LEVOTHYROXINE 100 MCG TABLET PO SCH (05:21)
[2018-08-20] MEDS: IV NORMAL SALINE 1,000ML 1,000 ML IV SCH ×2 (05:21→13:46)
[2018-08-20] MEDS: metroNIDAZOLE 500 MG TABLET PO SCH ×2 (05:21→13:53)
[2018-08-20] MEDS: NON FORMULARY ITEM (Icosapent Ethyl (Vascepa) 1 GM) PO SCH (05:26)
[2018-08-20 05:29] VITALS: BP 127/87
[2018-08-20 06:18] LABS: CALCIUM 7.9 mg/dL (8.5-10.1); CREATININE 0.9 mg/dL (0.6-1.0); GFR 66.3; POTASSIUM 3.5 mmol/L (3.5-5.1)
[2018-08-20 06:35] LABS: BASO # 0.1 x10^3/uL (0.0-0.2); BASO % 1 % (0-3); EOS # 0.3 x10^3/uL (0.0-0.7); EOS % 2 % (0-3); HEMATOCRIT 32.5 % (36.0-47.0); LYMPH # 2.2 x10^3/uL (1.0-4.8); LYMPH % 12 % (24-48); MEAN CORPUSCULAR HEMOGLOBIN 29 pg (25-35); MEAN CORPUSCULAR HGB CONC 34 g/dL (31-37); MEAN CORPUSCULAR VOLUME 85 fL (79-100); MONO # 0.8 x10^3/uL (0.0-1.1); MONO % 4 % (0-9); NEUT # 15.9 x10^3uL (1.8-7.7); NEUT % 82 % (31-73); PLATELET COUNT 548 x10^3/uL (140-400); RED BLOOD COUNT 3.81 x10^6/uL (3.50-5.40); RED CELL DISTRIBUTION WIDTH 16.4 % (11.5-14.5); WHITE BLOOD COUNT 19.4 x10^3/uL (4.0-11.0)
[2018-08-20] MEDS: DULoxetine HCL 60 MG CAPSULE.DR PO SCH ×2 (08:54→20:33)
[2018-08-20] MEDS: LACTOBACILLUS RHAMNOSUS GG 1 CAPSULE. PO SCH ×2 (08:54→20:33)
[2018-08-20] MEDS: TRIAMTERENE/HCTZ 37.5/25MG TABLET. PO SCH (08:54)
[2018-08-20] MEDS: PANTOPRAZOLE 40 MG TABLET. PO SCH (08:54)
[2018-08-20] MEDS: GABAPENTIN 300 MG CAPSULE. PO SCH ×3 (08:54→20:33)
[2018-08-20] MEDS: APIXABAN 2.5 MG TABLET PO SCH ×2 (08:55→20:33)
[2018-08-20] MEDS: MECLIZINE 12.5 MG TABLET. PO SCH ×3 (08:57→20:34)
[2018-08-20] MEDS ORDERED: LOPERAMIDE 2 MG CAPSULE PO PRN (09:45)
[2018-08-20 11:00] VITALS: BP 134/87
[2018-08-20] MEDS: ASPIRIN 81 MG TAB.CHEW PO SCH (13:46)
--- NOTE | 2018-08-20 14:04 | PN ---
DATE: SUBJECTIVE: The patient is resting comfortably. He is still complaining of severe diarrhea. C. diff is still pending. White count is still elevated at 19,000. We will discontinue the gentamicin as her E. coli should be sensitive to the Rocephin itself and cut down the possibility of C. diff there. PHYSICAL EXAMINATION: VITAL SIGNS: In any case, the patient's, her blood pressure is 120/80, respiratory 20, pulse 76, afebrile. GENERAL: Alert and oriented. LUNGS: Clear. CARDIOVASCULAR: Stable. ABDOMEN: Soft, although slightly distended, but very soft, slight guarding. Very slight, but no rebounding. EXTREMITIES: No clubbing, cyanosis or edema. NEUROLOGIC: Intact. IMAGING STUDIES: The patient's images show cholelithiasis. LABORATORY DATA: The patient has had several stools, we again waiting for that C. diff to come back but did start her on Flagyl and Rocephin. IMPRESSION: Sepsis, pyelonephritis, Escherichia coli, diarrhea, leukocytosis. PLAN: Continue to monitor the patient accordingly and continue on IV antibiotic therapy ____. We will look for other causes of her leukocytosis like the diarrhea. YVETTE MCELROY MD DR: PETER/fatou JOB#: [id number] / [id number]
--- NOTE | 2018-08-20 14:22 | RAD ---
Bilateral Lower Extremity Venous Doppler Ultrasound Indication: Elevated d-dimer. Comparison: None. Procedure: Color Doppler, spectral Doppler, and grayscale images with and without compression are obtained in the area of the common femoral vein, superficial femoral vein - femoral vein junction, main femoral vein (superficial femoral vein) and popliteal vein. Veins of the proximal calf are also imaged. Findings: There is normal duplex flow, color flow and compressibility of all visualized vein segments. There is no evidence of deep venous thrombosis. Impression: No evidence of lower extremity deep venous thrombosis. Electronically signed by: Garcia Mares MD (08/20/2018 2:19 PM) [place] [id number]
[2018-08-20 15:34] VITALS: BP 128/86
[2018-08-20] MEDS: QUEtiapine 100 MG TABLET. PO SCH (17:56)
[2018-08-20] MEDS: lamoTRIgine 150 MG TABLET. PO SCH (17:56)
[2018-08-20 19:08] VITALS: BP 122/79
[2018-08-20] MEDS: traZODone 100 MG TABLET. PO PRN (20:33)
[2018-08-20] MEDS: ATORVASTATIN CALCIUM 20 MG TABLET PO SCH (20:34)
[2018-08-20 22:33] VITALS: BP 100/69
[2018-08-21] MEDS: IV NORMAL SALINE 1,000ML 1,000 ML IV SCH ×2 (03:55→08:15)
[2018-08-21] MEDS: ACETAMINOPHEN 500 MG TABLET PO PRN (04:18)
[2018-08-21] MEDS: LEVOTHYROXINE 100 MCG TABLET PO SCH (04:55)
[2018-08-21 05:02] VITALS: BP 105/72
[2018-08-21 06:06] LABS: BASO # 0.1 x10^3/uL (0.0-0.2); BASO % 1 % (0-3); EOS # 0.2 x10^3/uL (0.0-0.7); EOS % 1 % (0-3); HEMATOCRIT 33.3 % (36.0-47.0); HEMOGLOBIN 11.1 g/dL (12.0-15.5); LYMPH # 2.1 x10^3/uL (1.0-4.8); LYMPH % 12 % (24-48); MEAN CORPUSCULAR HEMOGLOBIN 28 pg (25-35); MEAN CORPUSCULAR HGB CONC 33 g/dL (31-37); MEAN CORPUSCULAR VOLUME 85 fL (79-100); MONO # 0.9 x10^3/uL (0.0-1.1); MONO % 5 % (0-9); NEUT # 14.7 x10^3uL (1.8-7.7); NEUT % 82 % (31-73); PLATELET COUNT 578 x10^3/uL (140-400); RED CELL DISTRIBUTION WIDTH 16.7 % (11.5-14.5)
[2018-08-21 07:35] LABS: % BANDS 4 % (0-9); % BASOS 1 % (0-3); % EOS 2 % (0-5); % LYMPHS 14 % (24-48); % METAS 4 % (0-0); % MONOS 6 % (0-10); % MYELOS 2 % (0-0); % SEGS 67 % (35-66); ANISOCYTOSIS PRESENT; HYPOCHROMIA PRESENT; PLT ESTIMATE INCREASED (ADEQUATE)
[2018-08-21 07:36] LABS: STOMATOCYTES PRESENT
[2018-08-21] MEDS: TRIAMTERENE/HCTZ 37.5/25MG TABLET. PO SCH (08:56)
[2018-08-21] MEDS: LACTOBACILLUS RHAMNOSUS GG 1 CAPSULE. PO SCH (08:56)
[2018-08-21] MEDS: PANTOPRAZOLE 40 MG TABLET. PO SCH (08:57)
[2018-08-21] MEDS: GABAPENTIN 300 MG CAPSULE. PO SCH (08:57)
[2018-08-21] MEDS: MECLIZINE 12.5 MG TABLET. PO SCH (08:57)
[2018-08-21] MEDS: DULoxetine HCL 60 MG CAPSULE.DR PO SCH (08:57)
[2018-08-21] MEDS: APIXABAN 2.5 MG TABLET PO SCH ×2 (08:58→09:00)
[2018-08-21] MEDS ORDERED: CEPH500T PO (09:04)
--- NOTE | 2018-08-21 13:45 | DS ---
DATE OF DISCHARGE: 08/21/2018 HOSPITAL COURSE: A 56-year-old female in with pyelonephritis, sepsis. The patient was placed on IV antibiotic therapy. Her white count never came down much. However, the patient made excellent progress clinically. She was in no pain. She had no further problems. She said she felt good. She was afebrile. Her urine came back with E. coli should be sensitive to the oral cephalexin per the report. The patient had multiple imaging, while in the hospital because initially she came in with change in mental status. CT of the head was unremarkable. Her chest was negative for any signs of infection. We did a V/Q scan because of an elevated D-dimer and that was negative. The patient had a CT of the abdomen showed some cholelithiasis and mild stranding around the kidneys consistent with her pyelonephritis. No renal calculi was noted or obstructive uropathy or renal mass was noted. The patient also had venous Dopplers, which showed no evidence of DVT. In any case, the patient returned back to normal mental status. She was placed on Keflex. She should tolerate this well since she was taking Rocephin while in the hospital. She had diarrhea. Her C. diff was negative and by the time she was ready to leave. She said she was not having any further diarrhea. The patient made excellent progress during the rest of her hospitalization. She was sent home. She will be doing an outpatient ultrasound of her abdomen as well as a PIPIDA scan and otherwise she was eating, drinking well without any complication. She will be on a regular diet. IMPRESSION: Sepsis, pyelonephritis, sepsis caused by Escherichia coli urinary tract infection, leukocytosis, anemia of chronic disease, change in mental status, anemia of chronic disease, elevated D-dimer, severe protein malnutrition, hyperglycemia, hypokalemia. See MRAD and decreased activity. Follow up after these tests have been ordered on her and make further evaluation on her as indicated. YVETTE MCELROY MD DR: PETER/fatou JOB#: [id number] / [id number]
[2018-08-22] MEDS ORDERED: GENTAMICIN RANDOM LEVEL. MC ONE (08:00)
== END 2018-08-21 09:45 | disposition home or self-care (01) | DRG 871 ==
LOC: ER 09:51 → 1 SOUTH 13:06
PROVIDERS: ADMIT Family Medicine; ATTEND Family Medicine
DX: A41.51 Sepsis due to Escherichia coli [E. coli] (principal); E43 Unspecified severe protein-calorie malnutrition; N12 Tubulo-interstitial nephritis, not specified as acute or chronic; D63.8 Anemia in other chronic diseases classified elsewhere; F32.9 Major depressive disorder, single episode, unspecified; M19.90 Unspecified osteoarthritis, unspecified site; K80.20 Calculus of gallbladder without cholecystitis without obstruction; M79.7 Fibromyalgia; E03.9 Hypothyroidism, unspecified; F43.10 Post-traumatic stress disorder, unspecified; E11.65 Type 2 diabetes mellitus with hyperglycemia; E78.00 Pure hypercholesterolemia, unspecified; E87.6 Hypokalemia; I10 Essential (primary) hypertension; Z98.51 Tubal ligation status; Z68.32 Body mass index [BMI] 32.0-32.9, adult; Z79.899 Other long term (current) drug therapy; Z90.710 Acquired absence of both cervix and uterus
CPT/HCPCS: 36415; 70450; 71045; 71046; 74176; 78582; 80048; 80053; 80170; 81001; 82947; 83605; 84484; 85007; 85025; 85379; 87040; 87086; 87186; 87493; 93005; 93970; 96361; 96365; 96367; 96374; A9540; A9558; J0696; J1580; J8597; Q0162; 99285-25; J7030

== ENCOUNTER → 2018-09-20 | Outpatient (CLI) | payer BC, MEDICARE ==
[2018-08-21 05:02] VITALS: BP 105/72
[~2018-09-20] MED LIST changes: +ATOR40TA PO; +CELE100C PO; +CEPH500T PO; +DULO60CA44 PO; +ICOS1CAP PO; +LAMO150T2 PO; +MECL25TA3 PO; +PANT40TA5 PO; +QUET200T6 PO
--- NOTE | 2018-09-20 16:43 | RAD ---
Indication: Abnormal ultrasound renal TECHNIQUE: Grayscale and color Doppler images of the kidneys and bladder COMPARISON: None FINDINGS: Bilateral ureteral jets are seen. Urinary bladder is within normal limits. The prevoid bladder volume measures 269 cc. Post void bladder volume measures 16 cc. The right kidney measures 12.6 x 5.0 x 4.87 m without hydronephrosis. The left kidney measures 11.2 x 4.2 x 4.5 cm without hydronephrosis. IMPRESSION: No hydronephrosis. Electronically signed by: Pepe Carballo DO (09/20/2018 4:39 PM) [facility]
== END | disposition home or self-care (01) ==
LOC: US 15:06
PROVIDERS: ATTEND Nurse Practitioner Family
DX: R94.4 Abnormal results of kidney function studies (principal); R35.1 Nocturia; R35.0 Frequency of micturition
CPT/HCPCS: 76770

== ENCOUNTER 2019-12-22 17:07 | Emergency (ER) | payer BC, MEDICARE ==
[~2019-12-22] VITALS: Ht 167.6 cm; Wt 94.0 kg
[~2019-12-22 17:07] MED LIST changes: -DULO60CA44 PO; +DULO60CA98 PO; -LAMO150T2 PO; +LAMO150T4 PO; +MECL-75 PO; -MECL25TA3 PO; +METF500T11 PO; -METF500T9 PO; +OMEP40CA45 PO; -OMEP40CA5 PO; -QUET200T6 PO; +QUET200T7 PO; -QUET300T6 PO; +QUET300T7 PO; -QUET400T6 PO; +QUET400T7 PO; +TRAZ-120 PO; -TRAZ-85 PO
[2019-12-22 17:32] VITALS: BP 133/64
--- NOTE | 2019-12-22 17:58 | PHYS DOC ---
Past History Past Medical History: Arthritis, Bipolar, Depression, Diabetes, Fibromyalgia, High Cholesterol, Hypertension, Hypothyroid, Other Additional Past Medical Histor: PTSD (GEORGIA ZEE Jr., DO) Past Surgical History: Hysterectomy, Tubal ligation, Other (GEORGIA ZEE Jr., DO) Smoking: Non-smoker Alcohol Use: None Drug Use: None (GEORGIA ZEE Jr., DO) Adult General Chief Complaint Chief Complaint: LACERATION/AVULSION HPI HPI Patient is a 49-year-old female who presents after cutting her lower lip with scissors. Patient states that he just came into her mind to cut her lip with her scissors. Injury was an intentional. Patient does have history of depression and suicidal thoughts. Patient does indicate that she was trying to harm herself. She denies any homicidal ideations. Injury occurred at about 4 PM.[] (GEORGIA ZEE Jr., DO) Review of Systems Review of Systems Constitutional: Denies fever or chills [] Respiratory: Denies cough or shortness of breath [] Cardiovascular: No additional information not addressed in HPI [] Musculoskeletal: Denies back pain or joint pain [] Integument: Positive laceration[] Neurologic: Complains of headache without focal weakness or sensory changes [] All other systems were reviewed and found to be within normal limits, except as documented in this note. (GEORGIA ZEE Jr., DO) Allergies Allergies Allergies Coded Allergies Type Severity Reaction Last Updated Verified Penicillins Allergy Intermediate 11/15/14 Yes aripiprazole Allergy Intermediate 11/15/14 Yes ciprofloxacin Allergy Intermediate 11/15/14 Yes (GEORGIA ZEE Jr., DO) Physical Exam Physical Exam Constitutional: Well developed, well nourished, no acute distress, non-toxic appearance. [] HENT: Normocephalic, atraumatic, bilateral external ears normal, oropharynx moist, no oral exudates, nose normal. [] Eyes: PERRLA, EOMI, conjunctiva normal, no discharge. [] Neck: Normal range of motion, no tenderness, supple, no stridor. [] Cardiovascular:Heart rate regular rhythm, no murmur [] Lungs & Thorax: Bilateral breath sounds clear to auscultation [] Abdomen: Bowel sounds normal, soft, no tenderness. [] Skin: There is a full-thickness laceration to the lower lip extending through t he vermilion border, completely and 1 cm down below the vermilion border. Laceration extends through muscle, as sharp margins and is 3 cm in length, in total. [] Back: No tenderness, no CVA tenderness. [] Extremities: No tenderness, no cyanosis, no clubbing, ROM intact, no edema. [] Neurologic: Alert and oriented X 3, normal motor function, normal sensory function, no focal deficits noted. [] Psychologic: Positive depression and suicidal ideation. [] (GEORGIA ZEE Jr., DO) Current Patient Data Vital Signs Vital Signs Date Time Temp Pulse Resp B/P (MAP) Pulse Ox O2 Delivery O2 Flow Rate FiO2 12/22/19 17:32 98.0 69 18 133/64 (87) 100 Room Air (GEORGIA ZEE Jr., DO) EKG EKG [] (GEORGIA ZEE Jr., DO) Radiology/Procedures Radiology/Procedures [] (GEORGIA ZEE Jr., DO) Course & Med Decision Making Course & Med Decision Making Pertinent Labs and Imaging studies reviewed. (See chart for details) Laceration Repair by me: Anesthesia: 1% lidocaine locally Location: Lower lip Tendon/Joint/Nerves: No injury Foreign body: None detected after copious irrigation and exploration Technique: A total of 6 Simple Interrupted Sutures were placed utilizing 6-0 Ethilon suture material, externally. A total of 3 simple interrupted sutures were placed utilizing 3-0 catgut suture material, intraorally. Complexity: No subcutaneous sutures/mucosal repair/edge excision Post Closure Length: 3 cm Patient's bleeding was easily controlled in the department and there is no indication of anemia. No evidence of compartment syndrome, neurologic injury, vascular injury, open joint, tendon laceration, or foreign body. Patient is appropriate for outpatient follow up. 48 hour wound check. Scar minimization instructions given. (GEORGIA ZEE Jr., DO) Course & Med Decision Making The patient's behavioral health screener has determined that she can be safely discharged with close outpatient follow-up tomorrow. Safety plan has been completed. The patient is in agreement with this plan. She does have her will be home with her throughout the night. She is stable for discharge at this time. (ELISABETH MENJIVAR DO) Dragon Disclaimer Dragon Disclaimer This electronic medical record was generated, in whole or in part, using a voice recognition dictation system. (GEORGIA ZEE Jr. DO) Departure Departure: Impression: Primary Impression: Laceration of lower lip Additional Impressions: Suicidal ideation Intentional self-harm Disposition: 01 HOME, SELF-CARE Condition: IMPROVED Referrals: YVETTE MCELROY MD (PCP) Patient Instructions: Facial Laceration, [id number], Suicidal Feelings, How to Help Yourself Problem Qualifiers Primary Impression: Laceration of lower lip Encounter type: initial encounter Qualified Codes: S01.511A - Laceration without foreign body of lip, initial encounter GEORGIA ZEE Jr. DO Dec 22, 2019 17:58 ELISABETH MENJIVAR DO Dec 22, 2019 20:53
[2019-12-22 18:08] LABS: BASO # 0.1 x10^3/uL (0.0-0.2); BASO % 1 % (0-3); EOS # 0.1 x10^3/uL (0.0-0.7); EOS % 2 % (0-3); HEMATOCRIT 41.8 % (36.0-47.0); HEMOGLOBIN 14.2 g/dL (12.0-15.5); LYMPH # 1.9 x10^3/uL (1.0-4.8); LYMPH % 25 % (24-48); MEAN CORPUSCULAR HEMOGLOBIN 30 pg (25-35); MEAN CORPUSCULAR HGB CONC 34 g/dL (31-37); MEAN CORPUSCULAR VOLUME 89 fL (79-100); MONO # 0.5 x10^3/uL (0.0-1.1); MONO % 7 % (0-9); NEUT # 4.8 x10^3uL (1.8-7.7); NEUT % 65 % (31-73); PLATELET COUNT 288 x10^3/uL (140-400); RED BLOOD COUNT 4.69 x10^6/uL (3.50-5.40); RED CELL DISTRIBUTION WIDTH 14.1 % (11.5-14.5); WHITE BLOOD COUNT 7.4 x10^3/uL (4.0-11.0)
[2019-12-22 18:30] LABS: CALCIUM 8.8 mg/dL (8.5-10.1); CREATININE 0.9 mg/dL (0.6-1.0); POTASSIUM 3.9 mmol/L (3.5-5.1)
[2019-12-22 18:35] LABS: DIRECT BILIRUBIN 0.1 mg/dL (0.0-0.2); TOTAL BILIRUBIN 0.1 mg/dL (0.2-1.0); TOTAL PROTEIN 7.2 g/dL (6.4-8.2)
[2019-12-22 18:44] LABS: AMPHETAMINE/METHAMPHETAMINE NEG (NEG); BARBITURATES NEG (NEG); BENZODIAZEPINES NEG (NEG); CANNABINOIDS NEG (NEG); COCAINE NEG (NEG); METHADONE NEG (NEG); OPIATES NEG (NEG); PHENCYCLIDINE NEG (NEG)
[2019-12-22 18:50] LABS: BACTERIA,URINE FEW /HPF (0-FEW); BILIRUBIN,URINE NEG (NEG); CLARITY,URINE HAZY; COLOR,URINE YELLOW; GLUCOSE,URINE NEG (NEG); NITRITE,URINE NEG (NEG); SQUAMOUS EPITHELIAL CELL,UR FEW /LPF; UROBILINOGEN,URINE 0.2 mg/dL (0.2 mg/dL)
--- NOTE | 2019-12-22 18:50 | NUR ---
[facility] FOR AN EVALUATION.
== END 2019-12-22 20:55 | disposition home or self-care (01) ==
LOC: ER 17:07
DX: S01.511A Laceration without foreign body of lip, initial encounter (principal); M79.7 Fibromyalgia; E78.00 Pure hypercholesterolemia, unspecified; M19.90 Unspecified osteoarthritis, unspecified site; E11.9 Type 2 diabetes mellitus without complications; I10 Essential (primary) hypertension; F43.10 Post-traumatic stress disorder, unspecified; E03.9 Hypothyroidism, unspecified; Z88.1 Allergy status to other antibiotic agents; Z88.0 Allergy status to penicillin; Z88.8 Allergy status to other drugs, medicaments and biological substances; X78.8XXA Intentional self-harm by other sharp object, initial encounter; Y93.89 Activity, other specified; Y92.89 Other specified places as the place of occurrence of the external cause; Y99.8 Other external cause status
CPT/HCPCS: 12013; 36415; 80048; 80076; 80307; 81001; 85025; 87086; 99283; G0480

== ENCOUNTER 2020-03-19 17:31 | Emergency (ER) | payer BC ==
[~2020-03-19] VITALS: Ht 167.6 cm; Wt 92.2 kg
[~2020-03-19 17:31] MED LIST changes: +METF-658 PO; -METF500T11 PO; +MULT-445 PO; -MULT1TAB52 PO
--- NOTE | 2020-03-19 17:40 | PHYS DOC ---
Past History Past Medical History: Arthritis, Bipolar, Depression, Diabetes, Fibromyalgia, High Cholesterol, Hypertension, Hypothyroid, Other Additional Past Medical Histor: PTSD (MINE PALM MD) Past Surgical History: Hysterectomy, Tubal ligation, Other (MINE PALM MD) Smoking: Non-smoker Alcohol Use: None Drug Use: None (MINE PALM MD) General Adult EDM: Chief Complaint: MECHANICAL FALL HPI: HPI: Patient is a 49-year-old female who presents to the emergency department for evaluation. She states that [place], when she slipped on some wet infante, and struck her head on the concrete. This occurred just prior to arrival. She denies any loss of consciousness, or any other painful areas or injuries, other than the posterior occiput. She has not had any vomiting, mental status, or lethargy. She does not take any anticoagulants. There are no alleviating or exacerbating factors to her symptoms. (MINE PALM MD) Review of Systems: Review of Systems: Constitutional: Denies fever or chills Eyes: Denies change in visual acuity HENT: Denies nasal congestion or sore throat Respiratory: Denies cough or shortness of breath Cardiovascular: Denies chest pain or edema GI: Denies abdominal pain, nausea, vomiting, bloody stools or diarrhea : Denies dysuria Musculoskeletal: Denies back pain or joint pain Integument: Denies rash Neurologic: Denies focal weakness or sensory changes Psychiatric: Reports chronic depression and anxiety, denies suicidal ideation. (MINE PALM MD) Heart Score: Risk Factors: Risk Factors: DM, Current or recent (<one month) smoker, HTN, HLP, family history of CAD, obesity. Risk Scores: Score 0 - 3: 2.5% MACE over next 6 weeks - Discharge Home Score 4 - 6: 20.3% MACE over next 6 weeks - Admit for Clinical Observation Score 7 - 10: 72.7% MACE over next 6 weeks - Early Invasive Strategies (MINE PALM MD) Current Medications: Current Meds: Current Medications Medications (Trade) Dose Ordered Sig/David Start Time Stop Time Status Last Admin Dose Admin Acetaminophen (Tylenol) 1,000 mg 1X ONCE 03/19/20 17:45 03/19/20 17:46 UNV (MINE PALM MD) Allergies: Allergies: Allergies Coded Allergies Type Severity Reaction Last Updated Verified Penicillins Allergy Intermediate 11/15/14 Yes aripiprazole Allergy Intermediate 11/15/14 Yes ciprofloxacin Allergy Intermediate 11/15/14 Yes (MINE PALM MD) Physical Exam: PE: PHYSICAL EXAM: CONSTITUTIONAL: Well developed, well nourished HEAD: normocephalic, there is mild tenderness to palpation to the posterior occiput without any crepitus fixed significant soft tissue swelling or wounds. The remainder the cranium is atraumatic EENT: PERRL, EOMI. Conjunctivae normal color, sclerae non-icteric; moist mucous membranes. NECK: Supple, non-tender; no meningismus. There is full, painless range of mo tion of the cervical spine, without any focal bony midline tenderness to palpation. LUNGS: Lungs CTA, breathing even and unlabored. Normal air movement. HEART: Regular rate and rhythm, no murmur CHEST: No deformity; non-tender ABDOMEN: The abdomen is soft, and non-tender, no masses or bruits. EXTREM: Normal ROM; no deformity, no calf tenderness. Normal pulses palpable in all extremities. There is no pedal edema. The extremities are atraumatic. SKIN: No rash; no diaphoresis NEURO: Alert; normal speech and cognition; CN's grossly intact; strength grossly intact without focal deficit. BACK: No CVA TTP. There is no bony tenderness to palpation of the thoracic or lumbar spine. (MINE PALM MD) EKG: EKG: [] (MINE PALM MD) Radiology/Procedures: Radiology/Procedures: CT head C spine negative for any acute abnormality. (MINE PALM MD) Radiology/Procedures: [address] [address] IMAGING REPORT Signed PATIENT: ASHELY SESAY ACCOUNT: [id number] : 1970 LOCATION: ER AGE: 49 SEX: F EXAM STATUS: REG ER ORD. PHYSICIAN: MINE PALM MD REASON: fall, hit head and neck pain PROCEDURE: CT HEAD AND CERVICAL SPINE WO STUDY: CT head and cervical spine without contrast INDICATION: Fall. Head and neck pain. COMPARISON: CT head 08/16/2018 TECHNIQUE: Axial CT imaging through the head and cervical spine without the use of intravenous contrast. Sagittal and coronal reformats were obtained. One or more of the following individualized dose reduction techniques were utilized for this examination: 1. Automated exposure control 2. Adjustment of the mA and/or kV according to patient size 3. Use of iterative reconstruction technique. FINDINGS: CT head: No acute intracranial hemorrhage. Chavez-white matter differentiation is maintained. No mass effect, midline shift or hydrocephalus. Symmetric prominence of the visualized parotid glands. Unremarkable orbits. Findings suggestive of posterior parietal scalp contusion on the left. Intact calvarium. CT cervical spine: Degraded study secondary to patient body habitus. No acute fracture or traumatic malalignment. Overall mild degenerative changes. No severe osseous encroachment on the central canal or neural foramina. Degenerative remodeling at the atlantodental interface and a chronic focus of ossification at the tip of the dens. No soft tissue sequela of trauma seen throughout the neck. Chronic findings at the lung apices. IMPRESSION: CT head: 1. No acute intracranial abnormality by CT. 2. Probable mild posterior parietal scalp contusion on the left. Intact calvarium. CT cervical spine: 1. No acute fracture or traumatic malalignment. Electronically signed by: KHOA REYNOSO MD (03/19/2020 6:34 PM) [id number] DICTATED AND SIGNED BY: KHOA REYNOSO MD DATE: 03/19/20 1834 CC: YVETTE MCELROY MD; MINE PALM MD ~ (RANJEET FINLEY DO) Course & Med Decision Making: Course & Med Decision Making Pertinent Imaging studies reviewed. (See chart for details) [] Patient remains stable. I discussed test results, the need for close follow- up, and return precautions. (MINE PALM MD) Dragon Disclaimer: Dragon Disclaimer: This electronic medical record was generated, in whole or in part, using a voice recognition dictation system. (MINE PALM MD) Dragon Disclaimer: 1845 patient stable, head injury instructions given. There is no fracture, brain bleed or cervical fracture. Supportive care recommended. Patient has a steady gait with no focal deficits or lateralizing signs prior to discharge (RANJEET FINLEY DO) Departure Departure: Impression: Primary Impression: Closed head injury Disposition: HOME/RESIDENCE PRIOR TO ADM Condition: STABLE Referrals: YVETTE MCELROY MD (PCP) Patient Instructions: Head Injury, Adult Additional Instructions: Rest, ice and elevate the injured area, follow head injury instructions as given, return if worsen Justification of Admission: Justification of Admission: Justification of Admission Dx: N/A (MINE PALM MD) MINE PALM MD Mar 19, 2020 17:40 RANJEET FINLEY DO Mar 19, 2020 18:47
[2020-03-19] MEDS ORDERED: ACETAMINOPHEN 500 MG TABLET PO ONE (17:45)
--- NOTE | 2020-03-19 18:37 | RAD ---
STUDY: CT head and cervical spine without contrast INDICATION: Fall. Head and neck pain. COMPARISON: CT head 08/16/2018 TECHNIQUE: Axial CT imaging through the head and cervical spine without the use of intravenous contrast. Sagittal and coronal reformats were obtained. One or more of the following individualized dose reduction techniques were utilized for this examination: 1. Automated exposure control 2. Adjustment of the mA and/or kV according to patient size 3. Use of iterative reconstruction technique. FINDINGS: CT head: No acute intracranial hemorrhage. Chavez-white matter differentiation is maintained. No mass effect, midline shift or hydrocephalus. Symmetric prominence of the visualized parotid glands. Unremarkable orbits. Findings suggestive of posterior parietal scalp contusion on the left. Intact calvarium. CT cervical spine: Degraded study secondary to patient body habitus. No acute fracture or traumatic malalignment. Overall mild degenerative changes. No severe osseous encroachment on the central canal or neural foramina. Degenerative remodeling at the atlantodental interface and a chronic focus of ossification at the tip of the dens. No soft tissue sequela of trauma seen throughout the neck. Chronic findings at the lung apices. IMPRESSION: CT head: 1. No acute intracranial abnormality by CT. 2. Probable mild posterior parietal scalp contusion on the left. Intact calvarium. CT cervical spine: 1. No acute fracture or traumatic malalignment. Electronically signed by: KHOA REYNOSO MD (03/19/2020 6:34 PM) [id number]
[2020-03-19 18:56] VITALS: BP 128/72
== END 2020-03-19 18:56 | disposition home or self-care (01) ==
LOC: ER 17:31
DX: S09.8XXA Other specified injuries of head, initial encounter (principal); M19.90 Unspecified osteoarthritis, unspecified site; F31.9 Bipolar disorder, unspecified; E11.9 Type 2 diabetes mellitus without complications; M79.7 Fibromyalgia; E78.00 Pure hypercholesterolemia, unspecified; I10 Essential (primary) hypertension; E03.9 Hypothyroidism, unspecified; F43.10 Post-traumatic stress disorder, unspecified; Z88.0 Allergy status to penicillin; Z88.1 Allergy status to other antibiotic agents; W01.198A Fall on same level from slipping, tripping and stumbling with subsequent striking against other object, initial encounter; Y93.01 Activity, walking, marching and hiking; Y92.828 Other wilderness area as the place of occurrence of the external cause; Y99.8 Other external cause status; Z88.8 Allergy status to other drugs, medicaments and biological substances
CPT/HCPCS: 70450; 72125; 99285-25

== ENCOUNTER 2020-07-17 15:27 | Emergency (ER) | payer BC ==
[~2020-07-17] VITALS: Ht 167.6 cm; Wt 92.2 kg
[~2020-07-17 15:27] MED LIST changes: -PANT40TA5 PO; +PANT40TA6 PO
[2020-07-17 16:00] VITALS: BP 106/80
--- NOTE | 2020-07-17 16:24 | PHYS DOC ---
Past History Past Medical History: Arthritis, Bipolar, Depression, Diabetes, Fibromyalgia, High Cholesterol, Hypertension, Hypothyroid, UTI, Other Additional Past Medical Histor: PTSD (ELISABETH MENJIVAR DO) Past Medical History: UTI (FÉLIX ZARATE MD) Past Surgical History: Colectomy, Hysterectomy, Oophorectomy, Tubal ligation, Other Additional Past Surgical Histo: cosmetic surgery on abd; right foot surgery; bunionectomy (ELISABETH MENJIVAR DO) Smoking: Non-smoker Alcohol Use: None Drug Use: None (ELISABETH MENJIVAR DO) General Adult EDM: Chief Complaint: URINARY FREQUENCY HPI: HPI: 50-year-old female presents with chronic UTI for the last several months and lower abdominal pain at this time. She describes it as a cramping sensation. It radiates to her bilateral flanks. She went to urgent care and they sent her here. They are worried about pyelonephritis. Patient does not have a fever or chills. She just finished a round of ciprofloxacin 4 days ago. She has been on several rounds of different antibiotics for her UTI and test positive every time she gets tested. (ELISABETH MENJIVAR DO) Review of Systems: Review of Systems: Constitutional: Denies fever or chills Eyes: Denies change in visual acuity HENT: Denies nasal congestion or sore throat Respiratory: Denies cough or shortness of breath Cardiovascular: Denies chest pain or edema GI: Suprapubic abdominal pain. Denies nausea, vomiting, bloody stools or diarrhea : Urinary frequency, dysuria Musculoskeletal: Denies back pain or joint pain Integument: Denies rash Neurologic: Denies headache, focal weakness or sensory changes Endocrine: Denies polyuria or polydipsia Lymphatic: Denies swollen glands Psychiatric: Denies depression or anxiety (ELISABETH MENJIVAR DO) Heart Score: Risk Factors: Risk Factors: DM, Current or recent (<one month) smoker, HTN, HLP, family history of CAD, obesity. Risk Scores: Score 0 - 3: 2.5% MACE over next 6 weeks - Discharge Home Score 4 - 6: 20.3% MACE over next 6 weeks - Admit for Clinical Observation Score 7 - 10: 72.7% MACE over next 6 weeks - Early Invasive Strategies (ELISABETH MENJIVAR DO) Allergies: Allergies: Allergies Coded Allergies Type Severity Reaction Last Updated Verified Penicillins Allergy Intermediate 03/19/20 Yes aripiprazole Allergy Intermediate 03/19/20 Yes ciprofloxacin Allergy Intermediate 03/19/20 Yes (ELISABETH MENJIVAR DO) Physical Exam: PE: Constitutional: Well developed, well nourished, no acute distress, non-toxic appearance. [] HENT: Normocephalic, atraumatic, bilateral external ears normal, oropharynx moist, no oral exudates, nose normal. [] Eyes: PERRLA, EOMI, conjunctiva normal, no discharge. [] Neck: Normal range of motion, no tenderness, supple, no stridor. [] Cardiovascular: Heart rate regular rhythm, no murmur [] Lungs & Thorax: Bilateral breath sounds clear to auscultation [] Abdomen: Bowel sounds normal, soft, suprapubic tenderness, no masses, no pulsatile masses. [] Skin: Warm, dry, no erythema, no rash. [] Back: No tenderness, no CVA tenderness. [] Extremities: No tenderness, no cyanosis, no clubbing, ROM intact, no edema. [] Neurologic: Alert and oriented X 3, normal motor function, normal sensory function, no focal deficits noted. [] Psychologic: Affect normal, judgement normal, mood normal. [] (ELISABETH MENJIVAR DO) Current Patient Data: Vital Signs: Vital Signs Date Time Temp Pulse Resp B/P (MAP) Pulse Ox O2 Delivery O2 Flow Rate FiO2 07/17/20 16:00 98.3 80 16 106/80 (89) 99 (ELISABETH MENJIVAR DO) EKG: EKG: [] (ELISABETH MENJIVAR DO) Radiology/Procedures: Radiology/Procedures: [] (ELISABETH MENJIVAR DO) Radiology/Procedures: [address] [address] IMAGING REPORT Signed PATIENT: ASHELY SESAY ACCOUNT: [id number] : 1970 LOCATION: ER AGE: 50 SEX: F EXAM STATUS: REG ER ORD. PHYSICIAN: ELISABETH MENJIVAR DO REASON: chronic UTI, lower abdominal pain - diabetic PROCEDURE: CT ABD PELV W/ IV CONTRST ONLY CT abdomen pelvis with contrast dated 07/17/2020. COMPARISON: 08/19/2018. Clinical indication: Abdominal pain. Chronic UTI. TECHNIQUE: Contiguous axial imaging the M pelvis performed following the intravenous administration of 60 cc Isovue-370. One or more of the following individualized dose reduction techniques were utilized for this examination: 1. Automated exposure control 2. Adjustment of the mA and/or kV according to patient size 3. Use of iterative reconstruction technique. FINDINGS: Limited images of the lung bases show a small noncalcified pulmonary nodule in the right middle lobe on image 6 that measures 3 mm, nonspecific. There are additional linear bands of opacity in the bilateral lung bases consistent with scar or atelectasis. Heart size is mildly enlarged. No significant pleural or pericardial effusion. Liver is homogeneous. No apparent mass. No biliary ductal dilatation. There is calcified stones or gallbladder neck. Spleen is normal in size. Pancreas, adrenal glands and kidneys are unremarkable. No hydronephrosis. Unopacified GI tract normal in caliber and contour. No focal bowel wall thickening. No inflammatory stranding in the mesentery. There is evidence of prior right colon resection. Moderate stool in the distal colon. No adenopathy or ascites. Abdominal aorta normal in caliber. Images of pelvis show mildly distended urinary bladder. The uterus is surgically absent. No free fluid or pelvic lymphadenopathy. Bone windows show no acute findings. Mild multilevel spondylosis. IMPRESSION: 1. No acute abnormality of abdomen or pelvis. 2. Cholelithiasis. 3. Status post right colon resection and hysterectomy. 4. Small noncalcified pulmonary nodule in the right middle lobe, nonspecific. Electronically signed by: Garcia Cowart MD (07/17/2020 6:36 PM) [facility] [place] DICTATED AND SIGNED BY: GARCIA COWART MD DATE: 07/17/20 183 CC: ELISABETH MENJIVAR DO; YVETTE MCELROY MD ~ (FÉLIX ZARATE MD) Course & Med Decision Making: Course & Med Decision Making Pertinent Labs and Imaging studies reviewed. (See chart for details) The patient's labs are pending. I am signing her out to Dr. Zarate at 1800. [] (ELISABETH MENJIVAR DO) Course & Med Decision Making Patient push fluids. Patient take Tylenol and ibuprofen for pain. For marked pain may take Vicoprofen. Follow-up urine cultures. Follow-up with Dr. Albarran. Push fluids. Recommended clear fluid diet for the next 24-48 hours. No solids or milk products. Allow bowel rest. Impression: 1. Abdomen pain 2. Dysuria (FÉLIX ZARATE MD) Dragon Disclaimer: Dragon Disclaimer: This electronic medical record was generated, in whole or in part, using a voice recognition dictation system. (ELISABETH MENJIVAR DO) Departure Departure: Disposition: 01 DC HOME SELF CARE/HOMELESS Condition: STABLE Referrals: YVETTE MCELROY MD (PCP) Scripts Hydrocodone/Ibuprofen (HYDROCODONE-IBUPROFEN 7.5-200 ) 1 Each Tablet 1 TAB PO PRN Q6HRS PRN for PAIN, #30 TAB 0 Refills Prov: FÉLIX ZARATE MD 07/17/20 Dragon Disclaimer This chart was dictated in whole or in part using Voice Recognition software in a busy, high-work load, and often noisy Emergency Department environment. It may contain unintended and wholly unrecognized errors or omissions. (FÉLIX ZARATE MD) Dragon Disclaimer This chart was dictated in whole or in part using Voice Recognition software in a busy, high-work load, and often noisy Emergency Department environment. It may contain unintended and wholly unrecognized errors or omissions. (FÉLIX ZARATE MD) ELISABETH MENJIVAR DO Jul 17, 2020 16:24 FÉLIX ZARATE MD Jul 17, 2020 21:07
[2020-07-17] MEDS ORDERED: IOHEXOL 300 MG/ML 75 ML VIAL. IV ONE (16:30)
[2020-07-17 16:53] LABS: COLOR,URINE YELLOW
[2020-07-17 16:54] LABS: BACTERIA,URINE 0 /HPF (0-FEW); BILIRUBIN,URINE NEG (NEG); CLARITY,URINE CLEAR; GLUCOSE,URINE NEG (NEG); NITRITE,URINE NEG (NEG); RBC,URINE 0 /HPF (0-2); SQUAMOUS EPITHELIAL CELL,UR MOD /LPF; UROBILINOGEN,URINE 0.2 mg/dL (0.2 mg/dL)
[2020-07-17 17:41] LABS: BASO # 0.1 x10^3/uL (0.0-0.2); BASO % 1 % (0-3); EOS # 0.1 x10^3/uL (0.0-0.7); EOS % 2 % (0-3); HEMATOCRIT 42.8 % (36.0-47.0); HEMOGLOBIN 14.1 g/dL (12.0-15.5); LYMPH # 2.8 x10^3/uL (1.0-4.8); LYMPH % 36 % (24-48); MEAN CORPUSCULAR HEMOGLOBIN 30 pg (25-35); MEAN CORPUSCULAR HGB CONC 33 g/dL (31-37); MEAN CORPUSCULAR VOLUME 91 fL (79-100); MONO # 0.6 x10^3/uL (0.0-1.1); MONO % 8 % (0-9); NEUT # 4.1 x10^3uL (1.8-7.7); NEUT % 53 % (31-73); PLATELET COUNT 324 x10^3/uL (140-400); RED BLOOD COUNT 4.69 x10^6/uL (3.50-5.40); RED CELL DISTRIBUTION WIDTH 13.1 % (11.5-14.5); WHITE BLOOD COUNT 7.8 x10^3/uL (4.0-11.0)
[2020-07-17 17:58] LABS: CALCIUM 9.6 mg/dL (8.5-10.1); CREATININE 1.1 mg/dL (0.6-1.0); GFR 52.2; POTASSIUM 3.7 mmol/L (3.5-5.1)
[2020-07-17 18:03] LABS: ALBUMIN 4.5 g/dL (3.4-5.0); ALBUMIN/GLOBULIN RATIO 1.2 (1.0-1.7); TOTAL BILIRUBIN 0.2 mg/dL (0.2-1.0); TOTAL PROTEIN 8.2 g/dL (6.4-8.2)
--- NOTE | 2020-07-17 18:39 | RAD ---
CT abdomen pelvis with contrast dated 07/17/2020. COMPARISON: 08/19/2018. Clinical indication: Abdominal pain. Chronic UTI. TECHNIQUE: Contiguous axial imaging the M pelvis performed following the intravenous administration of 60 cc Isovue-370. One or more of the following individualized dose reduction techniques were utilized for this examination: 1. Automated exposure control 2. Adjustment of the mA and/or kV according to patient size 3. Use of iterative reconstruction technique. FINDINGS: Limited images of the lung bases show a small noncalcified pulmonary nodule in the right middle lobe on image 6 that measures 3 mm, nonspecific. There are additional linear bands of opacity in the bilateral lung bases consistent with scar or atelectasis. Heart size is mildly enlarged. No significant pleural or pericardial effusion. Liver is homogeneous. No apparent mass. No biliary ductal dilatation. There is calcified stones or gallbladder neck. Spleen is normal in size. Pancreas, adrenal glands and kidneys are unremarkable. No hydronephrosis. Unopacified GI tract normal in caliber and contour. No focal bowel wall thickening. No inflammatory stranding in the mesentery. There is evidence of prior right colon resection. Moderate stool in the distal colon. No adenopathy or ascites. Abdominal aorta normal in caliber. Images of pelvis show mildly distended urinary bladder. The uterus is surgically absent. No free fluid or pelvic lymphadenopathy. Bone windows show no acute findings. Mild multilevel spondylosis. IMPRESSION: 1. No acute abnormality of abdomen or pelvis. 2. Cholelithiasis. 3. Status post right colon resection and hysterectomy. 4. Small noncalcified pulmonary nodule in the right middle lobe, nonspecific. Electronically signed by: Garcia Cowart MD (07/17/2020 6:36 PM) [facility]
[2020-07-17] MEDS ORDERED: HYDR-1179 PO (21:22)
== END 2020-07-17 21:38 | disposition home or self-care (01) ==
LOC: ER 15:27
DX: R10.30 Lower abdominal pain, unspecified (principal); R35.0 Frequency of micturition; R30.0 Dysuria; M19.90 Unspecified osteoarthritis, unspecified site; E11.9 Type 2 diabetes mellitus without complications; M79.7 Fibromyalgia; E78.00 Pure hypercholesterolemia, unspecified; I10 Essential (primary) hypertension; E03.9 Hypothyroidism, unspecified; Z87.440 Personal history of urinary (tract) infections; Z90.710 Acquired absence of both cervix and uterus; Z98.51 Tubal ligation status; Z90.722 Acquired absence of ovaries, bilateral; Z90.49 Acquired absence of other specified parts of digestive tract; Z88.0 Allergy status to penicillin; Z88.1 Allergy status to other antibiotic agents; Z88.8 Allergy status to other drugs, medicaments and biological substances
CPT/HCPCS: 36415; 74177; 80053; 81001; 85025; 87086; 99285; Q9967

== ENCOUNTER → 2020-07-31 | Outpatient (CLI) | payer BC ==
[2020-07-17 16:00] VITALS: BP 106/80
[~2020-07-31] MED LIST changes: +HYDR-1179 PO
== END ==
LOC: LAB 14:34
PROVIDERS: ATTEND Urology
DX: N30.20 Other chronic cystitis without hematuria (principal)
CPT/HCPCS: 87086

== ENCOUNTER 2021-05-08 17:03 | Emergency (ER) | payer BC, MEDICARE ==
[~2021-05-08] VITALS: Ht 167.6 cm; Wt 92.2 kg
[~2021-05-08 17:03] MED LIST changes: -ETOD500T PO; +ETOD500T4 PO; -OMEP40CA45 PO; +OMEP40CA7 PO
--- NOTE | 2021-05-08 17:41 | PHYS DOC ---
Past History Past Medical History: UTI Additional Past Medical Histor: PTSD (YONI LANDAVERDE APRN) Past Surgical History: Colectomy, Hysterectomy, Oophorectomy, Tubal ligation, Other Additional Past Surgical Histo: cosmetic surgery on abd; right foot surgery; bunionectomy (YONI LANDAVERDE APRN) Smoking: Non-smoker Alcohol Use: None Drug Use: None (YONI LANDAVERDE APRN) General Adult EDM: Chief Complaint: ABDOMINAL PAIN HPI: HPI: Patient is a 50-year-old female presents to the ER today for constipation, abdominal distention, abdominal pain. Patient rates her pain 6 out of 10 and reports that it is generalized. Patient is also reporting dysuria and bilateral flank pain. She reports that she has had constipation since she was 17 years old. She had a small hard bowel movement yesterday. Patient takes MiraLAX, IBgard, eating prunes, and taking Linzess for her symptoms. Patient denies nausea, vomiting, blood in her stools. (YONI LANDAVERDE APRN) Review of Systems: Review of Systems: 14 body systems of the review of systems have been reviewed. See HPI for pert inent positive and negative responses, otherwise all other systems are negative, nonpertinent or noncontributory (YONI LANDAVERDE APRN) Current Medications: Current Meds: Current Medications Medications (Trade) Dose Ordered Sig/David Start Time Stop Time Status Last Admin Dose Admin Sodium Chloride 1,000 ml @ 1,000 mls/hr 1X ONCE 05/08/21 17:45 05/08/21 18:44 UNV (YONI LANDAVERDE APRN) Allergies: Allergies: Allergies Coded Allergies Type Severity Reaction Last Updated Verified Penicillins Allergy Intermediate 03/19/20 Yes aripiprazole Allergy Intermediate 03/19/20 Yes ciprofloxacin Allergy Intermediate 03/19/20 Yes (YONI LANDAVERDE APRN) Physical Exam: PE: Constitutional: Well developed, well nourished, no acute distress, non-toxic appearance. [] HENT: Normocephalic, atraumatic Eyes: PERRL, conjunctiva normal, no discharge. [] Neck: Normal range of motion, no stridor Cardiovascular:Heart rate regular rhythm, no murmur [] Lungs & Thorax: Bilateral breath sounds clear to auscultation [] Abdomen: Bowel sounds normal, firm, distended, generalized abdominal tenderness with palpation, no rebound tenderness, no point tenderness, no masses, no pulsatile masses. [] Skin: Warm, dry, no erythema, no rash. [] Back: No tenderness, bilateral CVA tenderness Extremities: No tenderness, no cyanosis, no clubbing, ROM intact, no edema. [] Neurologic: Alert and oriented X 3, normal motor function, normal sensory function, no focal deficits noted. [] Psychologic: Affect normal, judgement normal, mood normal. [] (YONI LANDAVERDE APRN) EKG: EKG: [] (YONI LANDAVERDE APRN) Radiology/Procedures: Radiology/Procedures: PROCEDURE: CT ABDOMEN PELVIS WO CONTRAST Exam: CT of abdomen and pelvis without contrast INDICATION: Abdominal pain and distention TECHNIQUE: Sequential axial images through the abdomen and pelvis obtained without IV contrast. Sagittal and coronal reformatted images were reconstructed from the axial data and reviewed. Exposure: One or more of the following in the visualized dose reduction techniques were utilized for this examination: 1. Automated exposure control 2. Adjustment of the MA and/or KV according to patient size 3. Use of iterative of reconstructive technique Comparisons: 07/17/2020 FINDINGS: Heart size is normal. No pericardial effusion. Strandy opacities at dependent portion lungs likely represent atelectasis. No pleural effusion. Evaluation of solid organs limited to a to noncontrast technique. Liver, spleen, pancreas and adrenals are unremarkable. Gallbladder is partially distended with gallstones and within the gallbladder. No perinephric inflammation or hydronephrosis. No renal or ureteral calculi are identified. Bladder is partially distended and not well evaluated. Uterus is absent. No abnormal adnexal mass. Large amount of stool is noted in the colon. Postoperative changes of partial colectomy. Small bowel is unremarkable. No free intra-abdominal air or fluid. No obstruction. Abdominal aorta has a normal course and caliber. No enlarged intra-abdominal lymph nodes are identified. No suspicious osseous lesions. IMPRESSION: 1. No acute process identified within the abdomen or pelvis. 2. Large amount stool in the colon, could relate to constipation. Correlate with symptomatology. 3. Cholelithiasis. Electronically signed by: Jackie Duenas MD (05/08/2021 8:39 PM) [facility] DICTATED AND SIGNED BY: JACKIE DUENAS MD DATE: 05/08/212036 CC: ELISABETH MENJIVAR DO; YVETTE MCELROY MD; YONI LANDAVERDE APRN ~MTH0 0 [] (YONI LANDAVERDE APRN) Heart Score: C/O Chest Pain: No Risk Factors: Risk Factors: DM, Current or recent (<one month) smoker, HTN, HLP, family history of CAD, obesity. Risk Scores: Score 0 - 3: 2.5% MACE over next 6 weeks - Discharge Home Score 4 - 6: 20.3% MACE over next 6 weeks - Admit for Clinical Observation Score 7 - 10: 72.7% MACE over next 6 weeks - Early Invasive Strategies (YONI LANDAVERDE APRN) Course & Med Decision Making: Course & Med Decision Making Pertinent Labs and Imaging studies reviewed. (See chart for details) [] Patient is a 50-year-old female being seen in the ER for multiple complaints including constipation, abdominal pain, abdominal distention, dysuria, bilateral flank pain. Work-up in the ER consisted of blood work, UA, CT scan of abdomen. Patient was treated in the ER with fluids. Lab work unremarkable. CT scan of abdomen showed constipation. Patient educated on the use of enema and mag citrate to help with her constipation. Patient is agreeable to care plan. (YONI LANDAVERDE APRN) Dragon Disclaimer: Dragon Disclaimer: This electronic medical record was generated, in whole or in part, using a voice recognition dictation system. (YONI LANDAVERDE APRN) Attending Co-Sign The patient was seen and interviewed as well as examined at the bedside. The [facility] was reviewed. The case was discussed. Agree with the plan of care. (ELISABETH MENJIVAR DO) Departure Departure: Disposition: HOME / SELF CARE / HOMELESS Condition: GOOD Referrals: YVETTE MCELROY MD (PCP) YONI LANDAVERDE APRN May 08, 2021 17:41 ELISABETH MENJIVAR DO May 09, 2021 05:03
[2021-05-08] MEDS ORDERED: IV NORMAL SALINE 1,000ML 1,000 ML IV ONE (17:45)
[2021-05-08] MEDS ORDERED: IOHEXOL 300 MG/ML 75 ML VIAL. IV ONE (17:45)
[2021-05-08 18:13] LABS: GFR 58.2; POTASSIUM 3.5 mmol/L (3.5-5.1)
[2021-05-08 18:15] LABS: BASO # 0.1 x10^3/uL (0.0-0.2); BASO % 1 % (0-3); EOS # 0.1 x10^3/uL (0.0-0.7); EOS % 2 % (0-3); HEMATOCRIT 35.2 % (36.0-47.0); HEMOGLOBIN 11.2 g/dL (12.0-15.5); LYMPH # 2.1 x10^3/uL (1.0-4.8); LYMPH % 31 % (24-48); MEAN CORPUSCULAR HEMOGLOBIN 26 pg (25-35); MEAN CORPUSCULAR HGB CONC 32 g/dL (31-37); MEAN CORPUSCULAR VOLUME 80 fL (79-100); MONO # 0.5 x10^3/uL (0.0-1.1); MONO % 7 % (0-9); NEUT # 4.1 x10^3uL (1.8-7.7); NEUT % 60 % (31-73); PLATELET COUNT 352 x10^3/uL (140-400); RED BLOOD COUNT 4.38 x10^6/uL (3.50-5.40); RED CELL DISTRIBUTION WIDTH 16.4 % (11.5-14.5); WHITE BLOOD COUNT 6.8 x10^3/uL (4.0-11.0)
[2021-05-08 18:19] LABS: ALBUMIN 4.2 g/dL (3.4-5.0); ALBUMIN/GLOBULIN RATIO 1.3 (1.0-1.7); TOTAL BILIRUBIN 0.2 mg/dL (0.2-1.0); TOTAL PROTEIN 7.4 g/dL (6.4-8.2)
[2021-05-08 18:38] LABS: CLARITY,URINE CLEAR; COLOR,URINE YELLOW
[2021-05-08 18:39] LABS: BACTERIA,URINE FEW /HPF (0-FEW); BILIRUBIN,URINE NEG (NEG); GLUCOSE,URINE NEG (NEG); NITRITE,URINE NEG (NEG); RBC,URINE 0 /HPF (0-2); SQUAMOUS EPITHELIAL CELL,UR OCC /LPF; UROBILINOGEN,URINE 0.2 mg/dL (0.2 mg/dL)
--- NOTE | 2021-05-08 18:52 | RAD ---
AP view of the abdomen Clinical indications: Constipation. FINDINGS: There is moderate fecal retention within the left side of the colon and rectosigmoid region . 2 metallic rectangular objects are seen within the midline of the pelvis each measuring 20 mm in si ze. Surgical clips are seen within the upper left side of the pelvis. Calcified phleboliths are seen. The osseous structures are intact. Spleen is mildly enlarged. IMPRESSION: Moderate fecal retention within the left side of the colon and rectosigmoid region. No ob structive bowel pattern. Mild splenomegaly. 2 metallic rectangular foreign objects are seen overlying the pelvis. This could be be related to pre vious surgery such as tubal ligation or could be due to ingestion of a foreign body. Electronically signed by: Matt Yuan MD (05/08/2021 6:50 PM) [id number]
[2021-05-08] MEDS ORDERED: CONTRAST GIVEN. MC PRN (20:00)
--- NOTE | 2021-05-08 20:42 | RAD ---
Exam: CT of abdomen and pelvis without contrast INDICATION: Abdominal pain and distention TECHNIQUE: Sequential axial images through the abdomen and pelvis obtained without IV contrast. Sagit juliette and coronal reformatted images were reconstructed from the axial data and reviewed. Exposure: One or more of the following in the visualized dose reduction techniques were utilized for this examination: 1. Automated exposure control 2. Adjustment of the MA and/or KV according to patient size 3. Use of iterative of reconstructive technique Comparisons: 07/17/2020 FINDINGS: Heart size is normal. No pericardial effusion. Strandy opacities at dependent portion lungs likely re present atelectasis. No pleural effusion. Evaluation of solid organs limited to a to noncontrast technique. Liver, spleen, pancreas and adrenals are unremarkable. Gallbladder is partially distended with gallst ones and within the gallbladder. No perinephric inflammation or hydronephrosis. No renal or ureteral calculi are identified. Bladder is partially distended and not well evaluated. Uterus is absent. No abnormal adnexal mass. Large amount of stool is noted in the colon. Postoperative changes of partial colectomy. Small bowel is unremarkable. No free intra-abdominal air or fluid. No obstruction. Abdominal aorta has a normal course and caliber. No enlarged intra-abdominal lymph nodes are identified. No suspicious osseous lesions. IMPRESSION: 1. No acute process identified within the abdomen or pelvis. 2. Large amount stool in the colon, could relate to constipation. Correlate with symptomatology. 3. Cholelithiasis. Electronically signed by: Jackie Loyd MD (05/08/2021 8:39 PM) [facility]
[2021-05-08] MEDS ORDERED: MAGNESIUM CITRATE 296 ML SOLUTION. ONE (20:53)
[2021-05-08] MEDS ORDERED: GLYCERIN ADULT 1 SUPP.RECT. ONE (20:53)
[2021-05-08 21:00] VITALS: BP 146/84
[2021-05-08] MEDS ORDERED: GLYCERIN ADULT 1 SUPP.RECT. PR ONE (21:30)
[2021-05-08] MEDS ORDERED: MAGNESIUM CITRATE 296 ML SOLUTION. PO ONE (21:30)
== END 2021-05-08 20:59 | disposition home or self-care (01) ==
LOC: ER 17:03
DX: K59.00 Constipation, unspecified (principal); R14.0 Abdominal distension (gaseous); R30.0 Dysuria; Z88.0 Allergy status to penicillin; Z88.1 Allergy status to other antibiotic agents; Z88.8 Allergy status to other drugs, medicaments and biological substances; Z87.440 Personal history of urinary (tract) infections; Z90.49 Acquired absence of other specified parts of digestive tract; Z90.710 Acquired absence of both cervix and uterus; Z98.51 Tubal ligation status; Z90.722 Acquired absence of ovaries, bilateral
CPT/HCPCS: 36415; 74018; 74176; 80053; 81001; 83690; 85025; 87086; 96360; 99285; J7030

== ENCOUNTER 2021-11-27 10:09 | Emergency (ER) | payer BC, MEDICARE ==
[~2021-11-27] VITALS: Ht 167.6 cm; Wt 91.9 kg
[~2021-11-27 10:09] MED LIST changes: -DULO60CA6 PO; +DULO60CA7 PO; +ETOD500T3 PO; -ETOD500T4 PO
[2021-11-27 10:20] VITALS: BP 121/76
[2021-11-27] MEDS ORDERED: CEPH500C PO (10:52)
--- NOTE | 2021-11-27 10:52 | PHYS DOC ---
Past History Past Medical History: UTI Additional Past Medical Histor: PTSD (YONI LANDAVERDE APRN) Past Surgical History: Colectomy, Hysterectomy, Oophorectomy, Tubal ligation, Other Additional Past Surgical Histo: cosmetic surgery on abd; right foot surgery; bunionectomy, BREAST REDUCTION (YONI LANDAVERDE APRN) Smoking: Non-smoker Alcohol Use: Sober Drug Use: None (YONI LANDAVERDE APRN) General Adult EDM: Chief Complaint: ABSCESS HPI: HPI: Patient is a 51-year-old female who presents to the emergency department today for a "bump" to the back of her head has been there for 2 years. Patient reports that she has noticed a bump on the back of her head increasing in pain over the last 2 days. She rates her pain 8 out of 10 and she reports that she has got left-sided neck pain. Patient took Tylenol at 8:00 this morning. Patient does have a history of migraine headaches, anxiety, depression, PTSD. She denies any nausea, vomiting, neck stiffness, fevers, confusion, vision changes. Patient reports that she did fall 2 years ago and did have a CT of her head and neck that did not show any acute findings. (YONI LANDAVERDE APRN) Review of Systems: Review of Systems: Constitutional: negative unless reported in HPI Eyes: negative unless reported in HPI HENT: negative unless reported in HPI Respiratory: negative unless reported in HPI Cardiovascular: negative unless reported in HPI GI: negative unless reported in HPI : negative unless reported in HPI Musculoskeletal: negative unless reported in HPI Integument: negative unless reported in HPI Neurologic: negative unless reported in HPI Endocrine: negative unless reported in HPI Lymphatic: negative unless reported in HPI Psychiatric: negative unless reported in HPI (YONI LANDAVERDE APRN) Allergies: Allergies: Allergies Coded Allergies Type Severity Reaction Last Updated Verified No Known Drug Allergies 11/27/21 No (YONI LANDAVERDE APRN) Physical Exam: PE: Constitutional: Well developed, well nourished, no acute distress, non-toxic appearance. [] HENT: Normocephalic, atraumatic, bilateral external ears normal, oropharynx moist, no oral exudates, pea-sized abscess versus cyst noted to occipital region of patient's scalp without any redness/warmth/drainage there is no fluctuance, left occipial lymphadenopathy, Nose normal. [] Eyes: PERRL, 4 mm bilaterally, EOMI, conjunctiva normal, no discharge. [] Neck: Normal range of motion, no tenderness, no palpable cervical lymphadenopathy, no palpable clavicular lymphadenopathy, no nucchal rigidity, supple, no stridor. [] Cardiovascular:Heart rate regular rhythm, no murmur [] Lungs & Thorax: Bilateral breath sounds clear to auscultation [] Abdomen: Soft and obese Skin: Warm, dry, no erythema, no rash. [] Back: Normal range of motion Extremities: No tenderness, no cyanosis, no clubbing, ROM intact, no edema. [] Neurologic: Alert and oriented X 3, normal motor function, normal sensory function, no focal deficits noted. [] Psychologic: Affect normal, judgement normal, mood normal. [] (YONI LANDAVERDE APRN) Current Patient Data: Vital Signs: Vital Signs Date Time Temp Pulse Resp B/P (MAP) Pulse Ox O2 Delivery O2 Flow Rate FiO2 11/27/21 10:20 98.1 91 20 121/76 (91) 96 Room Air (YONI LANDAVERDE APRN) EKG: EKG: [] (YONI LANDAVERDE APRN) Radiology/Procedures: Radiology/Procedures: [] (YONI LANDAVERDE APRN) Heart Score: C/O Chest Pain: N/A Risk Factors: Risk Factors: DM, Current or recent (<one month) smoker, HTN, HLP, family history of CAD, obesity. Risk Scores: Score 0 - 3: 2.5% MACE over next 6 weeks - Discharge Home Score 4 - 6: 20.3% MACE over next 6 weeks - Admit for Clinical Observation Score 7 - 10: 72.7% MACE over next 6 weeks - Early Invasive Strategies (YONI LANDAVERDE APRN) Course & Med Decision Making: Course & Med Decision Making Pertinent Labs and Imaging studies reviewed. (See chart for details) Patient presents to the emergency department for a "bump" to the back of her head that has been present for 2 years and pain to her left side of her neck. Patient is noted to have a small pea-sized abscess versus cyst to the back of her head without any surrounding signs of infection like redness, warmth, swelling or drainage, there is no fluctuance. Patient's pain in her neck is localized to a left occipital lymph node. Patient will be placed on an antibiotic. She is advised to follow-up with her primary care provider regarding finding a surgeon to remove the cyst in the back of her head. Patient's vital signs are stable and she is in no acute distress. I discussed with patient all findings and diagnostic testing as well as the need to follow-up with PCP for further evaluation and treatment or return to the ER if any new or worsening symptoms. Strict return precautions were also discussed at length. Patient voiced understanding and agreement with the plan. Patient is hemodynamically stable at the time of disposition. (YONI LANDAVERDE APRN) Course & Med Decision Making I was the Attending physician on the above date of service of this patient. This patient was evaluated, examined, treated, and dispositioned from the emergency department by the mid-level practitioner. Although I was working at the time , no assistance was requested. Electronically signed, Cara Ma DO (CARA MA DO) Lavinia Disclaimer: Lavinia Disclaimer: This electronic medical record was generated, in whole or in part, using a voice recognition dictation system. (YONI LANDAVERDE APRN) Departure Departure: Impression: Primary Impression: Cyst Disposition: HOME / SELF CARE / HOMELESS Condition: GOOD Referrals: YVETTE MCELROY MD (PCP) Patient Instructions: Epidermal Cyst Additional Instructions: You were seen in the emergency department today for a bump to the back of your head. This appears to be a cyst. You will need to follow-up with your primary care provider to find a physician that will remove the cyst to the back of your head. The pain in your neck is localized to a lymph node that is enlarged. You may benefit from ultrasound of this area outpatient. Take Tylenol and ibuprofen for your pain at home. You are being placed on the antibiotic. Start and finish the antibiotic completely. Follow-up with your primary care provider on Monday regarding your ER visit. Return to the emergency department if you develop worsening of your pain, confusion, intractable nausea or vomiting, decreased range of motion of your neck, vision changes, inability to walk, high fevers refractory to treatment. Scripts Cephalexin (KEFLEX) 500 Mg Capsule 1 CAP PO QID for infection for 7 Days, #28 CAP 0 Refills Prov: YONI LANDAVERDE APRN 11/27/21 YONI LANDAVERDE APRN Nov 27, 2021 10:52 CARA MA DO Nov 27, 2021 15:07
[2021-11-27] MEDS ORDERED: HYDROcodone/APAP 5/325MG 1 TAB TABLET PO ONE (11:00)
== END 2021-11-27 11:20 | disposition home or self-care (01) ==
LOC: ER 10:09
DX: L72.8 Other follicular cysts of the skin and subcutaneous tissue (principal); Z87.440 Personal history of urinary (tract) infections
CPT/HCPCS: 99283